=== PATIENT | female | born 1990 | race Caucasian/White ===

== ENCOUNTER 2018-07-16 20:29 | Emergency (ER) | payer MEDICAID, OTHER ==
--- NOTE | 2018-07-16 20:39 | ED Physician Documentation ---
PD HPI URI - Stated complaint Stated Complaint: SOA - Chief complaint Chief Complaint: General - History obtained from History obtained from: Patient - History of Present Illness Timing - onset: How many weeks ago (3-4) Timing duration: Weeks Timing details: Gradual onset, Waxing and waning Pain level now: 8 Associated symptoms: Fever, Chills, Sweats, Productive cough, Chest pain. No: Hemoptysis, Dyspnea, Bilateral edema, Unilateral edema Improves by: Rest Worsened by: Activity Similar symptoms before: Diagnosis (pneumonia) Recently seen: Clinic, Emergency Dept - Additional information Additional information: c/o 3-4 weeks of productive cough, pleuritic chest pain. Was seen in ED 3 weeks ago, had CXR. Per patient, was told cxr and blood tests were unremarkable. Despite this, she believed she had pneumonia and thus started taking amoxicillin which had been prescribed for her spouse for a sore throat. She then was seen in a walk-in clinic in [place] and had CXR, was told there was a LLL pneumonia and that it appeared improved compared to the CXR performed in ED (this came as a surprise to patient, as she says she was told the cxr was normal). She was told she had already taken enough amoxicillin and thus did not need any more antibiotics. She then returned to ED, as her symptoms persisted. She was prescribed MDI and steroids. She had flu swabs on two of these three visits and they were both negative. She presents to this ED at this time for ongoing cough, pleuritic chest pain, fever, chills/sweats. Review of Systems Constitutional: reports: Fever, Chills, Sweats Throat: reports: Sore throat Cardiac: reports: Chest pain / pressure. denies: Palpitations, Pedal edema, Calf pain Respiratory: reports: Cough. denies: Dyspnea, Hemoptysis, Wheezing GI: reports: Reviewed and negative PD PAST MEDICAL HISTORY - Past Medical History Past Medical History: Yes Respiratory: Pneumonia - Past Surgical History Past Surgical History: No - Present Medications Home Medications: Ambulatory Orders Medication Instructions Recorded Confirmed Azithromycin [Zithromax] 250 mg PO DAILY #4 tablet 07/16/18 predniSONE [Prednisone] 20 mg PO BID 3 Days #6 tablet 07/16/18 - Allergies Allergies/Adverse Reactions: Allergies Allergy/AdvReac Type Severity Reaction Status Date / Time No Known Drug Allergies Allergy Verified 07/16/18 20:37 - Living Situation Living Arrangement: reports: At home PD ED PE NORMAL - Vitals Vital signs reviewed: Yes - General General: Alert and oriented X 3, No acute distress, Well developed/nourished - Neck Neck: Supple, no meningeal sign - Cardiac Cardiac: RRR, No murmur - Respiratory Respiratory: No respiratory distress - Abdomen Abdomen: Soft, Non tender PD ED PE EXPANDED - Respiratory Respiratory: Rhonchi (course left base rhonchi). No: Wheezing, Rales, Decreased breath sounds Results - Vitals Vitals: Vital Signs - 24 hr 07/16/18 07/16/18 07/16/18 20:35 21:05 21:47 Temperature 38.5 C H 37.7 C H Heart Rate 113 H 116 H 106 H Respiratory 16 18 18 Rate Blood Pressure 118/73 115/70 113/69 O2 Saturation 97 96 97 Oxygen O2 Source Room air - Rads (name of study) chest xray Radiology: Prelim report reviewed, See rad report PD MEDICAL DECISION MAKING - ED course Complexity details: reviewed results, re-evaluated patient, considered differential, d/w patient Departure - Departure Disposition: Home, Self Care Clinical Impression: Pneumonia Condition: Good Instructions: ED Pneumonia Adult Prescriptions: Azithromycin [Zithromax] 250 mg PO DAILY #4 tablet predniSONE [Prednisone] 20 mg PO BID 3 Days #6 tablet
[2018-07-16] MEDS ORDERED: ACETAMINOPHEN 325 MG TABLET PO STA (20:56)
[2018-07-16] MEDS ORDERED: DEXAMETHASONE 10 MG/ML VIAL PO STA (20:56)
--- NOTE | 2018-07-16 21:25 | XRAY Report ---
Reason: cough, fever Procedure Date: 07/16/2018 Accession Number: [id number] / [id number] Procedure: XR - Chest 2 View X-Ray CPT Code: 69010 FULL RESULT: EXAM: CHEST RADIOGRAPHY EXAM DATE: 07/16/2018 09:02 PM. CLINICAL HISTORY: Cough, fever. COMPARISON: None. TECHNIQUE: 2 views. FINDINGS: Lungs/Pleura: There is a left lower lobe pneumonic infiltrate. The other lung zones are clear. There are no pleural effusions. Mediastinum: Heart and mediastinal contours are unremarkable. Other: None. IMPRESSION: Left lower lobe pneumonia. RADIA
[2018-07-16] MEDS ORDERED: AZITHROMYCIN 250 MG TABLET PO STA (21:49)
[2018-07-16] MEDS ORDERED: LIDOCAINE 1% 2 ML VIAL MC ONE (21:49)
[2018-07-16] MEDS ORDERED: cefTRIAXone 1 GM VIAL IM STA (21:49)
[2018-07-16 22:23] VITALS: BP 117/65
== END 2018-07-16 22:26 | disposition home or self-care (01) ==
LOC: ED 20:29
DX: J18.9 Pneumonia, unspecified organism (principal)
CPT/HCPCS: 71046; 96372; 99283; A9270

== ENCOUNTER 2018-11-12 18:20 | Emergency (ER) | payer MEDICAID ==
[2018-11-12] MEDS ORDERED: TETANUS/DIPHTHERIA/PERTUSSIS 0.5 ML SYRINGE IM ONE (18:35)
--- NOTE | 2018-11-12 18:39 | ED Physician Documentation ---
PD HPI LOWER EXT INJURY - Stated complaint Stated Complaint: R ANKLE INJ - Chief complaint Chief Complaint: Ext Problem - History obtained from History obtained from: Patient - History of Present Illness PD HPI LOW EXT INJURY LOCATION: Right (Trip and fall injuring the right ankle and skinning the left knee. Tetanus is unknown. She took ibuprofen prior to arrival and pain is moderate right now and declines further pain medication. No possibility of .) Review of Systems Constitutional: reports: Reviewed and negative Throat: reports: Reviewed and negative Cardiac: reports: Reviewed and negative Respiratory: reports: Reviewed and negative PD PAST MEDICAL HISTORY - Past Medical History Respiratory: Pneumonia - Past Surgical History Past Surgical History: No - Present Medications Home Medications: Ambulatory Orders Medication Instructions Recorded Confirmed RX: Azithromycin [Zithromax] 250 mg PO DAILY #4 tablet 07/16/18 predniSONE [Prednisone] 20 mg PO BID 3 Days #6 tablet 07/16/18 - Allergies Allergies/Adverse Reactions: Allergies Allergy/AdvReac Type Severity Reaction Status Date / Time No Known Drug Allergies Allergy Verified 11/12/18 18:25 - Social History Does the pt smoke?: Yes Smoking Status: Current every day smoker Does the pt drink ETOH?: Yes Does the pt have substance abuse?: No - Immunizations Immunizations are current?: Yes PD ED PE NORMAL - Vitals Vital signs reviewed: Yes - General General: Alert and oriented X 3, No acute distress - Neck Neck: No bony TTP - Extremities Extremities: Other (Tender and swollen over the right medial malleolus although she does have pain there. No foot or proximal fibular tenderness. She has an abrasion over the left patella without bony tenderness or limited range of motion.) - Neuro Neuro: Alert and oriented X 3, Normal speech Results - Vitals Vitals: Vital Signs - 24 hr 11/12/18 11/12/18 18:22 19:18 Temperature 37.0 C 36.7 C Heart Rate 86 75 Respiratory 19 18 Rate Blood Pressure 124/74 122/70 O2 Saturation 98 99 Oxygen O2 Source Room air - Rads (name of study) R ankle 3v Radiology: EMP read contemporaneously (STS no frx) Departure - Departure Disposition: 01 Home, Self Care Clinical Impression: Right ankle sprain, Abrasion, left knee, initial encounter Condition: Good Record reviewed to determine appropriate education?: Yes Instructions: ED Abrasion, ED Sprain Ankle W X Ray Comments: You may walk and bear weight as tolerated, Tylenol or ibuprofen as needed for pain. Follow-up with your doctor in a week if not better, return for new or worsening symptoms. Discharge Date/Time: 11/12/18 19:15
[2018-11-12 19:19] VITALS: BP 122/70
--- NOTE | 2018-11-12 19:24 | XRAY Report ---
Reason: ankle inj Procedure Date: 11/12/2018 Accession Number: [id number] / [id number] Procedure: XR - Ankle 3 View RT CPT Code: FULL RESULT: EXAM: RIGHT ANKLE RADIOGRAPHY EXAM DATE: 11/12/2018 06:57 PM. CLINICAL HISTORY: Ankle inj. COMPARISON: None. TECHNIQUE: 3 views. FINDINGS: Bones: Normal. No fractures or bone lesions. Joints: Small right ankle joint effusion. The ankle mortise is normally aligned. Soft Tissues: Marked right ankle soft tissue swelling noted. No radiopaque foreign bodies are noted. IMPRESSION: 1. No fracture or malalignment. 2. Ankle mortise intact. 3. Marked right ankle swelling. Small right ankle effusion. 4. If patient remains symptomatic, recommend radiographs in 10-14 days. RADIA
== END 2018-11-12 19:15 | disposition home or self-care (01) ==
LOC: ED 18:20
DX: S93.401A Sprain of unspecified ligament of right ankle, initial encounter (principal); S80.212A Abrasion, left knee, initial encounter; W01.0XXA Fall on same level from slipping, tripping and stumbling without subsequent striking against object, initial encounter; Y93.01 Activity, walking, marching and hiking; Z23 Encounter for immunization; F17.200 Nicotine dependence, unspecified, uncomplicated
CPT/HCPCS: 90471; 99282

== ENCOUNTER 2019-06-22 09:37 | Emergency (ER) | payer MEDICAID ==
--- NOTE | 2019-06-22 10:13 | ED Physician Documentation ---
PD HPI DYSPNEA - Stated complaint Stated Complaint: SOA/STOMACH PX - Chief complaint Chief Complaint: Resp - History obtained from History obtained from: Patient - History of Present Illness Timing - onset: How many weeks ago (2) Timing - duration: Weeks (2) Timing - details: Gradual onset, Still present Inciting event(s): URI (cough and congestion, with some purulent sputum, for 2 weeks. Having lower abd pain the past several days. Worse with cough and palpation and movement.), Exercise. No: Immobilization/travel Improved by: Rest Worsened by: Exertion, Coughing. No: Laying flat Associated symptoms: Cough, Wheezing, Chest pain / discomfort, Other (lower abd pain/suprapubic). No: Fever, Hemoptysis, Palpitations Recently seen: Surgery (had hysterectomy 9 weeks ago. Ovaries left in. Healed okay. She says she had a post-op infection vaginally and got abx for it. Has been feeling okay until this cough started.) Review of Systems Constitutional: denies: Fever, Chills, Myalgias Nose: reports: Congestion. denies: Rhinorrhea / runny nose Throat: denies: Sore throat Cardiac: denies: Chest pain / pressure, Palpitations Respiratory: reports: Dyspnea, Cough. denies: Wheezing GI: reports: Abdominal Pain, Nausea. denies: Vomiting, Diarrhea : denies: Dysuria, Frequency Musculoskeletal: denies: Extremity swelling PD PAST MEDICAL HISTORY - Past Medical History Respiratory: Pneumonia - Past Surgical History Past Surgical History: No - Present Medications Home Medications: Ambulatory Orders Medication Instructions Recorded Confirmed Albuterol Sulfate [Albuterol 2 puffs IH QID #1 hfa.aer.ad 06/22/19 Sulfate Hfa] Amoxicillin 500 mg PO TID #21 capsule 06/22/19 Benzonatate [Tessalon Perle] 100 mg PO TID PRN #20 capsule 06/22/19 Cetirizine [ZyrTEC] 10 mg PO DAILY #15 tablet 06/22/19 Hydrocodone/Acetaminophen [Tibbie 1 each PO Q6H PRN #15 tablet 06/22/19 5-325 Tablet] Naproxen 375 mg PO BID #20 tablet 06/22/19 - Allergies Allergies/Adverse Reactions: Allergies Allergy/AdvReac Type Severity Reaction Status Date / Time Iodinated Contrast Media Allergy Edema Verified 06/22/19 09:46 - Social History Does the pt smoke?: Yes Smoking Status: Current every day smoker Does the pt drink ETOH?: Yes Does the pt have substance abuse?: No - Immunizations Immunizations are current?: Yes PD ED PE NORMAL - Vitals Vital signs reviewed: Yes - General General: Alert and oriented X 3, No acute distress, Well developed/nourished - HEENT HEENT: Ears normal, Moist mucous membranes, Pharynx benign - Neck Neck: Supple, no meningeal sign, No adenopathy - Cardiac Cardiac: RRR, No murmur - Respiratory Respiratory: Clear bilaterally - Abdomen Abdomen: Normal bowel sounds, Soft, Non distended, No organomegaly, Other (healed laparoscopy incisions. Lower abd is tender in suprapubic area. No guarding nor percussion tenderness. ) - Female Female : Deferred - Rectal Rectal: Deferred - Back Back: No CVA TTP - Derm Derm: Normal color Results - Vitals Vitals: Vital Signs - 24 hr 06/22/19 06/22/19 09:46 12:55 Temperature 36.8 C 36.9 C Heart Rate 67 67 Respiratory 18 20 Rate Blood Pressure 116/71 105/74 O2 Saturation 100 100 Oxygen O2 Source Room air - Labs Labs: Laboratory Tests 06/22/19 06/22/19 06/22/19 10:45 12:00 12:00 WBC 6.6 RBC 4.19 L Hgb 11.4 L Hct 36.0 L MCV 85.9 MCH 27.2 MCHC 31.7 L RDW 13.3 Plt Count 211 MPV 11.6 H Neut # (Auto) 4.5 Lymph # (Auto) 1.4 L Bates # (Auto) 0.6 Eos # (Auto) 0.1 Baso # (Auto) 0.0 Absolute Nucleated RBC 0.00 Nucleated RBC % 0.0 D-Dimer 235.0 Sodium Potassium Chloride Carbon Dioxide Anion Gap BUN Creatinine Estimated GFR (MDRD) Glucose Calcium Magnesium Total Bilirubin AST ALT Alkaline Phosphatase B-Natriuretic Peptide Total Protein Albumin Globulin Albumin/Globulin Ratio Lipase Urine Color YELLOW Urine Clarity CLEAR Urine pH 6.0 Ur Specific [place] >=1.030 H Urine Protein NEGATIVE Urine Glucose (UA) NEGATIVE Urine Ketones NEGATIVE Urine Occult Blood NEGATIVE Urine Nitrite NEGATIVE Urine Bilirubin NEGATIVE Urine Urobilinogen 0.2 (NORMAL) Ur Leukocyte Esterase NEGATIVE Ur Microscopic Review NOT INDICATED Urine Culture Comments NOT INDICATED 06/22/19 06/22/19 12:00 12:00 WBC RBC Hgb Hct MCV MCH MCHC RDW Plt Count MPV Neut # (Auto) Lymph # (Auto) Bates # (Auto) Eos # (Auto) Baso # (Auto) Absolute Nucleated RBC Nucleated RBC % D-Dimer Sodium 136 Potassium 3.8 Chloride 104 Carbon Dioxide 26 Anion Gap 6.0 BUN 11 Creatinine 0.6 Estimated GFR (MDRD) 117 Glucose 97 Calcium 8.8 Magnesium 1.9 Total Bilirubin 0.8 AST 15 ALT 21 Alkaline Phosphatase 45 B-Natriuretic Peptide 7 Total Protein 6.8 Albumin 4.2 Globulin 2.6 Albumin/Globulin Ratio 1.6 Lipase 22 Urine Color Urine Clarity Urine pH Ur Specific [place] Urine Protein Urine Glucose (UA) Urine Ketones Urine Occult Blood Urine Nitrite Urine Bilirubin Urine Urobilinogen Ur Leukocyte Esterase Ur Microscopic Review Urine Culture Comments - Rads (name of study) chest xray Radiology: Prelim report reviewed (no acute process), See rad report pelvic U/S Radiology: Prelim report reviewed (small cysts on ovaries. No free fluid. No signs of abscess. ), See rad report PD MEDICAL DECISION MAKING - ED course Complexity details: considered differential (likely URI/bronchitis. No edema in legs nor CHF to consider. D-dimer negative so no DVT/PE. ), d/w patient Departure - Departure Disposition: 01 Home, Self Care Clinical Impression: Lower abdominal pain Upper respiratory infection Qualifiers: URI type: unspecified URI Qualified Code(s): J06.9 - Acute upper respiratory infection, unspecified Bronchitis, acute Qualifiers: Bronchitis organism: unspecified organism Qualified Code(s): J20.9 - Acute bronchitis, unspecified Dyspnea Qualifiers: Dyspnea type: dyspnea on exertion Qualified Code(s): R06.09 - Other forms of dyspnea Condition: Stable Record reviewed to determine appropriate education?: Yes Instructions: ED Upper Resp Infec Abx Tx Follow-Up: Javan Jones MD [Primary Care Provider] - Prescriptions: Albuterol Sulfate [Albuterol Sulfate Hfa] 2 puffs IH QID #1 hfa.aer.ad Amoxicillin 500 mg PO TID #21 capsule Benzonatate [Tessalon Perle] 100 mg PO TID PRN #20 capsule PRN Reason: Cough Cetirizine [ZyrTEC] 10 mg PO DAILY #15 tablet Hydrocodone/Acetaminophen [Tibbie 5-325 Tablet] 1 each PO Q6H PRN #15 tablet PRN Reason: Pain Naproxen 375 mg PO BID #20 tablet Comments: Stay well-hydrated. For the lower abdominal pain, your urine looks okay and the ultrasound did not show any obvious abnormalities. There are small cysts noted on the ovaries but none of them large nor leaking. For this pain, I am presuming possibly some pulling of adhesions or stretching of scar tissue with the cough and I will. Can use naproxen anti-inflammatories and add Tylenol or hydrocodone if needed for pains. For the cough and trouble breathing, use albuterol inhaler 2 puffs 4 times a day for the next week. Tessalon if needed for cough suppression. Cetirizine for possible allergies. Your chest x-ray and blood tests are normal so no signs of pneumonia, heart involvement, blood clots, fluid in the lungs or other more serious concerns. Discharge Date/Time: 06/22/19 13:34
[2019-06-22] MEDS ORDERED: KETOROLAC 15 MG/ML VIAL IVP STA (10:30)
[2019-06-22] MEDS ORDERED: SODIUM CHLORIDE 0.9% 1,000 ML IV ONE (10:30)
[2019-06-22] MEDS ORDERED: BENZONATATE 100 MG CAPSULE PO STA (10:31)
[2019-06-22 10:50] LABS: BILIRUBIN,URINE NEGATIVE (NEGATIVE); GLUCOSE, URINE (UA) NEGATIVE (NEGATIVE); KETONES,URINE (UA) NEGATIVE (NEGATIVE); LEUKOCYTE ESTERASE, URINE NEGATIVE (NEGATIVE); NITRITE,URINE NEGATIVE (NEGATIVE); OCCULT BLOOD,URINE NEGATIVE (NEGATIVE); PROTEIN,URINE NEGATIVE (NEGATIVE); UROBILINOGEN,URINE 0.2 (NORMAL) E.U./dL (NORMAL)
[2019-06-22 10:52] LABS: CLARITY,URINE CLEAR (CLEAR)
--- NOTE | 2019-06-22 11:07 | XRAY Report ---
Reason: dyspnea/ cough Procedure Date: 06/22/2019 Accession Number: [id number] / [id number] Procedure: XR - Chest 2 View X-Ray CPT Code: 18362 Final Report FULL RESULT: EXAM: CHEST RADIOGRAPHY 2 VIEWS EXAM DATE: 06/22/2019. CLINICAL HISTORY: Dyspnea. Cough. COMPARISON: PA and lateral chest on 07/16/2018. TECHNIQUE: PA and lateral views. FINDINGS: Lungs/Pleura: Normal vasculature. The lungs are clear. No pleural fluid or pneumothorax. Mediastinum: Normal cardiac and mediastinal contours. Bones: Normal. IMPRESSION: Normal 2-view chest radiography. RADIA
--- NOTE | 2019-06-22 11:53 | Ultrasound Report ---
Reason: pelvic pain; low abd pain; post hyst Procedure Date: 06/22/2019 Accession Number: [id number] / [id number] Procedure: US - Pelvic w/Transvag+Doppler Ltd CPT Code: Final Report FULL RESULT: EXAM: PELVIC ULTRASOUND WITH DOPPLERS CLINICAL HISTORY: Pelvic pain; low abdomen pain; post hysterectomy. COMPARISON: None. TECHNIQUE: Realtime transabdominal imaging performed to identify the uterus and adnexa and as an overview of other pelvic structures, followed by transvaginal imaging for better assessment of the endometrium and adnexa, with static image documentation. Color flow imaging and Doppler spectral analysis was performed to evaluate blood flow to the ovaries given pelvic pain and clinical concern for ovarian torsion. FINDINGS: Uterus: Not seen, surgically absent. Cervix: A few nabothian cysts are noticed, otherwise unremarkable. Right Ovary: 3.7 x 2.3 x 3.6 cm, volume 17 cc. Normal echotexture. Arterial and venous blood flow are present. PSV 14.3 cm/sec. RI 0.55. Adnexa are unremarkable. Left Ovary: 3.0 x 1.9 x 2.3 cm, volume 7.0 cc. Normal echotexture. Arterial and venous blood flow are present. PSV 11.8 cm/sec. RI 0.45. Adnexa are unremarkable. Free Fluid: None. Other: None. IMPRESSION: 1. Expected appearance post hysterectomy. 2. Arterial and venous blood flow are present to the ovaries bilaterally. RADIA
[2019-06-22 12:07] LABS: BASOPHILS % (AUTO) 0.5 %; EOSINOPHILS # (AUTO) 0.1 10^3/uL (0.0-0.7); EOSINOPHILS % (AUTO) 1.2 %; HGB - HEMOGLOBIN 11.4 g/dL (12.0-16.0); LYMPHOCYTES # (AUTO) 1.4 10^3/uL (1.5-3.5); LYMPHOCYTES % (AUTO) 21.4 %; MEAN CORPUSCULAR HEMOGLOBIN 27.2 pg (27.0-31.0); MEAN CORPUSCULAR HGB CONC 31.7 g/dL (32.0-36.0); MEAN CORPUSCULAR VOLUME 85.9 fL (81.0-99.0); MEAN PLATELET VOLUME 11.6 fL (7.9-10.8); MONOCYTES # (AUTO) 0.6 10^3/uL (0.0-1.0); MONOCYTES % (AUTO) 8.5 %; NEUTROPHILS # (AUTO) 4.5 10^3/uL (1.5-6.6); NEUTROPHILS % (AUTO) 67.9 %; PLT - PLATELET COUNT 211 10^3/uL (130-450); RED BLOOD COUNT 4.19 10^6/uL (4.20-5.40); RED CELL DISTRIBUTION WIDTH 13.3 % (12.0-15.0); WHITE BLOOD COUNT 6.6 x10^3/uL (4.8-10.8)
[2019-06-22 12:22] LABS: ALBUMIN 4.2 g/dL (3.2-5.5); ALBUMIN/GLOBULIN RATIO 1.6 (1.0-2.2); BILIRUBIN,TOTAL 0.8 mg/dL (0.2-1.0); CALCIUM 8.8 mg/dL (8.5-10.3); CREATININE 0.6 mg/dL (0.4-1.0); MAGNESIUM 1.9 mg/dL (1.7-2.8); TOTAL PROTEIN 6.8 g/dL (6.7-8.2)
[2019-06-22 12:56] VITALS: BP 105/74
[2019-06-22] MEDS ORDERED: AMOXICILLIN 250 MG CAPSULE PO STA (13:12)
[2019-06-22] MEDS ORDERED: DEXAMETHASONE 10 MG/ML VIAL PO STA (13:13)
[2019-06-22] MEDS ORDERED: CHERRY SYRUP 10 ML UDC PO ONE (13:13)
== END 2019-06-22 13:34 | disposition home or self-care (01) ==
LOC: ED 09:37
DX: R10.30 Lower abdominal pain, unspecified (principal); J06.9 Acute upper respiratory infection, unspecified; J20.9 Acute bronchitis, unspecified; F17.210 Nicotine dependence, cigarettes, uncomplicated
CPT/HCPCS: 36415; 71046; 76830; 76856; 80053; 81003; 83690; 83735; 83880; 85025; 85379; 93976; 99284; 99285; A9270; 81001; 87086

== ENCOUNTER 2019-07-06 17:39 | Outpatient (CLI) | payer MEDICAID | END 2019-07-06 17:40 | disposition home or self-care (01) | LOC: COV 17:39 | PROVIDERS: ATTEND Family Medicine | DX: R05 Cough (principal); R50.9 Fever, unspecified | CPT/HCPCS: 81599 ==

== ENCOUNTER 2020-04-03 17:35 | Emergency (ER) | payer MEDICAID ==
[2020-04-03 17:50] VITALS: BP 140/82
--- NOTE | 2020-04-03 18:20 | ED Physician Documentation ---
PD HPI UPPER EXT INJURY - Stated complaint Stated Complaint: RIGHT ARM PX - Chief complaint Chief Complaint: Ext Problem - History obtained from History obtained from: Patient - History of Present Illness Location: Right Type of injury: Fall Where injury occurred: Street Timing - onset: Last night (6PM) - Additonal information Additional information: Had EtOH last night and fell off hoverboard And on her right side. She remembers it. Complains of shoulder and elbow pain on that side. No other injuries. Review of Systems Constitutional: reports: Reviewed and negative Ears: reports: Reviewed and negative Nose: reports: Reviewed and negative Throat: reports: Reviewed and negative Cardiac: reports: Reviewed and negative PD PAST MEDICAL HISTORY - Past Medical History Past Medical History: Yes Respiratory: Pneumonia - Past Surgical History Past Surgical History: No /[employer]: Hysterectomy - Present Medications Home Medications: Ambulatory Orders Medication Instructions Recorded Confirmed Albuterol Sulfate [Albuterol 2 puffs IH QID #1 hfa.aer.ad 06/22/19 04/03/20 Sulfate Hfa] Cetirizine [ZyrTEC] 10 mg PO DAILY #15 tablet 06/22/19 04/03/20 Cyclobenzaprine [Flexeril] 10 mg PO TID PRN #10 tablet 04/03/20 - Allergies Allergies/Adverse Reactions: Allergies Allergy/AdvReac Type Severity Reaction Status Date / Time Iodinated Contrast Media Allergy Edema Verified 04/03/20 17:51 - Social History Does the pt smoke?: Yes Smoking Status: Current every day smoker Does the pt drink ETOH?: Yes Does the pt have substance abuse?: No - Immunizations Immunizations are current?: Yes PD ED PE NORMAL - Vitals Vital signs reviewed: Yes - General General: Alert and oriented X 3, No acute distress - Neck Neck: No bony TTP - Extremities Extremities: Other (Mild tenderness of both the shoulder and elbow on the right side with relatively full range of motion of both joints. No rib tenderness. No neck tenderness.) - Neuro Neuro: Alert and oriented X 3, Normal speech Results - Vitals Vitals: Vital Signs - 24 hr 04/03/20 17:47 Temperature 36.5 C Heart Rate 95 Respiratory 16 Rate Blood Pressure 140/82 H O2 Saturation 100 Oxygen O2 Source Room air PD MEDICAL DECISION MAKING - ED course ED course: 29-year-old woman with a fall off's hover board last night presents with pain of the shoulder and elbow. Clinically not fractured. X-rays of the right humerus and right elbow interpreted contemporaneously by me show no fracture. Advised to follow-up in 1 week if not better. Placed in a sling but advised to only use for 2 days. Departure - Departure Disposition: 01 Home, Self Care Clinical Impression: Shoulder contusion Qualifiers: Encounter type: initial encounter Laterality: right Qualified Code(s): S40.011A - Contusion of right shoulder, initial encounter Contusion of elbow, right Qualifiers: Encounter type: initial encounter Qualified Code(s): S50.01XA - Contusion of right elbow, initial encounter Condition: Good Record reviewed to determine appropriate education?: Yes Instructions: ED Contusion Soft Tissue Prescriptions: Cyclobenzaprine [Flexeril] 10 mg PO TID PRN #10 tablet PRN Reason: Spasms Comments: Do not wear the sling for more than 2 days as discussed. Return if worsening. Do not drink or drive while taking prescription muscle relaxer. You can also take Tylenol or ibuprofen as needed for the pain. Follow-up with your doctor in a week if not improved.
--- NOTE | 2020-04-03 19:04 | XRAY Report ---
PROCEDURE: Elbow 3 View RT INDICATIONS: ARM INJ TECHNIQUE: 3 views of the elbow were acquired. COMPARISON: None FINDINGS: Bones: No fractures or dislocations. No suspicious bony lesions. Soft tissues: No elbow joint effusion. No suspicious soft tissue calcifications. IMPRESSION: 1. No acute radiographic findings. If pain persists, consider repeat imaging in 5-7 days. Reviewed by: Zohra Fry MD on 04/03/2020 7:03 PM PST Approved by: Zohra Fry MD on 04/03/2020 7:03 PM PST Station ID: [id number]
--- NOTE | 2020-04-03 19:05 | XRAY Report ---
PROCEDURE: Humerus RT INDICATIONS: ARM INJ TECHNIQUE: 2 views of the humerus were acquired. COMPARISON: None FINDINGS: Bones: No fractures or dislocations. No suspicious bony lesions. Soft tissues: No suspicious soft tissue calcifications. IMPRESSION: 1. No acute radiographic findings. If pain persists, consider repeat imaging in 5-7 days. Reviewed by: Zohra Fry MD on 04/03/2020 7:04 PM PST Approved by: Zohra Fry MD on 04/03/2020 7:04 PM PST Station ID: [id number]
== END 2020-04-03 19:28 | disposition home or self-care (01) ==
LOC: ED 17:35
DX: S40.011A Contusion of right shoulder, initial encounter (principal); S50.01XA Contusion of right elbow, initial encounter; V00.181A Fall from other rolling-type pedestrian conveyance, initial encounter; Y93.89 Activity, other specified; F17.200 Nicotine dependence, unspecified, uncomplicated
CPT/HCPCS: 99283; 99284

== ENCOUNTER 2020-09-07 15:06 | Observation (INO) | payer MEDICAID ==
[2020-09-07] MEDS ORDERED: ONDANSETRON 4 MG/2 ML VIAL IVP STA (16:40)
[2020-09-07] MEDS ORDERED: SODIUM CHLORIDE 0.9% 1,000 ML IV STA (16:40)
--- NOTE | 2020-09-07 16:43 | ED Physician Documentation ---
History of Present Illness - Stated complaint Stated Complaint: VACCINE REACTION - Chief complaint Chief Complaint: Allergic Rx - Additonal information Additional information: 30-year-old female presents the emergency department for evaluation of headache, nausea, ringing in her left ear, vision changes after receiving the Pfizer COVID-19 vaccination 4 days ago. She reports that the symptoms started a few hours after she got the initial injection and have gone unabated despite ibuprofen and Tylenol. She has not had any abdominal pain, chest pain or shortness of air. No diarrhea. She does have past medical history of untreated hyperthyroidism. She is currently scheduled to see an real estate appraiser upcoming. Positive tobacco, rare EtOH no illicit drug use. She takes no prescribed medications. Past medical history includes hypothyroidism, fibromyalgia, arthritis. Review of Systems Constitutional: reports: Myalgias. denies: Fever Eyes: reports: Decreased vision Ears: denies: Loss of hearing (Ringing in left ear), Ear pain, Drainage/discharge Nose: reports: Reviewed and negative Cardiac: reports: Reviewed and negative Respiratory: denies: Dyspnea, Cough GI: reports: Reviewed and negative : denies: Dysuria, Frequency Skin: reports: Reviewed and negative Musculoskeletal: reports: Reviewed and negative Neurologic: reports: Headache. 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 - Present Medications Home Medications: Ambulatory Orders Medication Instructions Recorded Confirmed Albuterol Sulfate [Albuterol 2 puffs IH QID #1 hfa.aer.ad 06/22/19 04/03/20 Sulfate Hfa] Cetirizine [ZyrTEC] 10 mg PO DAILY #15 tablet 06/22/19 04/03/20 Cyclobenzaprine [Flexeril] 10 mg PO TID PRN #10 tablet 04/03/20 - Allergies Allergies/Adverse Reactions: Allergies Allergy/AdvReac Type Severity Reaction Status Date / Time Iodinated Contrast Media Allergy Edema Verified 09/07/20 15:11 - Social History Does the pt smoke?: Yes Smoking Status: Current every day smoker Does the pt drink ETOH?: Yes Does the pt have substance abuse?: No - Immunizations Immunizations are current?: Yes PD ED PE EXPANDED - General General: Alert, No acute distress - HEENT HEENT: Atraumatic, PERRL, Other (Enlarged thyroid without goiter or nodules palpated.) - Neck Neck: Supple w/out meningeal sx. No: Adenopathy - Cardiac Cardiac: Regular Rate, Radial strong equal, Pedal strong equal, Cap refill < 2 sec. No: Murmur Present - Respiratory Respiratory: Clear to ausultation ana. No: Distress, Labored - Abdomen Abdomen: Normal Bowel sounds. No: Tender to palpation - Derm Derm: Normal color, Warm and dry - Extremities Extremities: Normal. No: Deformity, Tenderness - Neuro Neuro: Alert and Oriented X 3, CNII-XII intact, CN deficit (Loss of hearing in left ear. Positive tinnitus.), PERRL, Cerebellar nl, Normal gait, Normal finger nose, Normal speech. No: Nystagmus - GCS Eye Opening: Spontaneous Motor: Obeys Commands Verbal: Oriented Total: 15 Results - Vitals Vitals: Vital Signs - 24 hr 09/07/20 15:11 Temperature 36.6 C Heart Rate 75 Respiratory 16 Rate Blood Pressure 127/78 O2 Saturation 100 Oxygen O2 Source Room air - Labs Labs: Laboratory Tests 09/07/20 09/07/20 09/07/20 16:41 16:41 16:41 WBC 8.3 RBC 4.57 Hgb 14.2 Hct 42.0 MCV 91.9 MCH 31.1 H MCHC 33.8 RDW 12.6 Plt Count 264 MPV 11.3 H Neut # (Auto) 5.9 Lymph # (Auto) 1.7 [place] # (Auto) 0.5 Eos # (Auto) 0.1 Baso # (Auto) 0.1 Absolute Nucleated RBC 0.00 Nucleated RBC % 0.0 Sodium 137 Potassium 3.8 Chloride 100 L Carbon Dioxide 27 Anion Gap 10.0 BUN 8 Creatinine 0.6 Estimated GFR (MDRD) 117 Glucose 92 Calcium 9.3 Total Bilirubin 0.7 AST 21 ALT 23 Alkaline Phosphatase 50 Total Protein 7.8 Albumin 5.0 Globulin 2.8 Albumin/Globulin Ratio 1.8 Lipase 23 TSH 0.32 L Thyroxine (T4) 7.43 Urine Color Urine Clarity Urine pH Ur Specific [place] Urine Protein Urine Glucose (UA) Urine Ketones Urine Occult Blood Urine Nitrite Urine Bilirubin Urine Urobilinogen Ur Leukocyte Esterase Ur Microscopic Review Urine Culture Comments 09/07/20 16:50 WBC RBC Hgb Hct MCV MCH MCHC RDW Plt Count MPV Neut # (Auto) Lymph # (Auto) [place] # (Auto) Eos # (Auto) Baso # (Auto) Absolute Nucleated RBC Nucleated RBC % Sodium Potassium Chloride Carbon Dioxide Anion Gap BUN Creatinine Estimated GFR (MDRD) Glucose Calcium Total Bilirubin AST ALT Alkaline Phosphatase Total Protein Albumin Globulin Albumin/Globulin Ratio Lipase TSH Thyroxine (T4) Urine Color YELLOW Urine Clarity CLEAR Urine pH 7.5 Ur Specific [place] 1.020 Urine Protein NEGATIVE Urine Glucose (UA) NEGATIVE Urine Ketones TRACE Urine Occult Blood NEGATIVE Urine Nitrite NEGATIVE Urine Bilirubin NEGATIVE Urine Urobilinogen 0.2 (NORMAL) Ur Leukocyte Esterase NEGATIVE Ur Microscopic Review NOT INDICATED Urine Culture Comments NOT INDICATED - Rads (name of study) CT head Radiology: Final report received ( Low-density lesion in the left frontal periventricular white matter. Finding is nonspecific imaging characteristics may represent a subacute infarct, neoplastic disease infection or demyelinating process. Recommend MRI of the brain with and without contrast.) PD MEDICAL DECISION MAKING - ED course Complexity details: reviewed results, re-evaluated patient, considered differential ED course: 30-year-old female presents the emergency department for evaluation of acute onset headache, nausea blurry vision and now tinnitus with loss of hearing in the left ear. This began 4 days ago after her COVID-19 vaccination. Here in the emergency department screening labs are essentially unremarkable. She has a normal neuro exam as well as a cerebellar exam. However the acute headache with associated tinnitus was concerning and a head CT was completed. Unfortunately does show a low-density lesion within the left frontal periventricular white matter. The differential in discussion with the radiologist does include subacute infarct versus tumor mass. He does recommend MRI with and without contrast on an emergent basis ( he would recommend within the next 24 hours given concern for subacute infarct) Reassuringly on presentation the patient does not have any focal neuro deficits. Her NIHSS is 0. I discussed this case with the hospitalist Dr. Hope and she agrees to bring the patient in for further evaluation and treatment of this lesion which may include infarct versus mass. Departure - Departure Disposition: ED Place in Observation Clinical Impression: Left frontal lobe lesion Tinnitus Qualifiers: Laterality: left Qualified Code(s): H93.12 - Tinnitus, left ear Headache Qualifiers: Headache type: unspecified Headache chronicity pattern: acute headache Intractability: not intractable Qualified Code(s): R51.9 - Headache, unspecified Discharge Date/Time: 09/07/20 18:15
[2020-09-07 16:47] LABS: BASOPHILS # (AUTO) 0.1 10^3/uL (0.0-0.1); BASOPHILS % (AUTO) 0.6 %; EOSINOPHILS # (AUTO) 0.1 10^3/uL (0.0-0.7); HGB - HEMOGLOBIN 14.2 g/dL (12.0-16.0); LYMPHOCYTES # (AUTO) 1.7 10^3/uL (1.5-3.5); LYMPHOCYTES % (AUTO) 20.5 %; MEAN CORPUSCULAR HEMOGLOBIN 31.1 pg (27.0-31.0); MEAN CORPUSCULAR HGB CONC 33.8 g/dL (32.0-36.0); MEAN CORPUSCULAR VOLUME 91.9 fL (81.0-99.0); MEAN PLATELET VOLUME 11.3 fL (7.9-10.8); MONOCYTES # (AUTO) 0.5 10^3/uL (0.0-1.0); MONOCYTES % (AUTO) 6.2 %; NEUTROPHILS # (AUTO) 5.9 10^3/uL (1.5-6.6); NEUTROPHILS % (AUTO) 71.2 %; PLT - PLATELET COUNT 264 10^3/uL (130-450); RED BLOOD COUNT 4.57 10^6/uL (4.20-5.40); RED CELL DISTRIBUTION WIDTH 12.6 % (12.0-15.0); WHITE BLOOD COUNT 8.3 x10^3/uL (4.8-10.8)
[2020-09-07 17:02] LABS: ALBUMIN/GLOBULIN RATIO 1.8 (1.0-2.2); BILIRUBIN,TOTAL 0.7 mg/dL (0.2-1.0); CALCIUM 9.3 mg/dL (8.5-10.3); CREATININE 0.6 mg/dL (0.4-1.0); POTASSIUM 3.8 mmol/L (3.5-5.0); TOTAL PROTEIN 7.8 g/dL (6.7-8.2)
--- NOTE | 2020-09-07 17:05 | CT Report ---
PROCEDURE: HEAD WO INDICATIONS: headache; ringing in ears TECHNIQUE: Noncontrast 4.5 mm thick angled axial sections acquired from the foramen magnum to the vertex. For r adiation dose reduction, the following was used: automated exposure control, adjustment of mA and/or kV according to patient size. COMPARISON: None. FINDINGS: Image quality: Excellent. CSF spaces: Basal cisterns are patent. No extra-axial fluid collections. Ventricles are normal in size and shape. Brain: Small low-density lesion noted in the left frontal periventricular white matter. No midline s hift. No intracranial masses or hemorrhage. Reyez-white matter interface is normal. Skull and face: Calvarium and visualized facial bones are intact, without suspicious lesions. Sinuses: Visualized sinuses and mastoids are clear. IMPRESSION: Low-density lesion in the left frontal periventricular white matter. Finding is nonspecific imaging c haracteristics may represent subacute infarct, neoplastic process, infection or demyelinating process . Recommend MRI of the brain with and without contrast for additional evaluation. Findings and recommendations discussed with Dr. Del Valle on 09/07/2020 at 1701 hours. Reviewed by: Ruth Garcia MD, PhD on 09/07/2020 5:04 PM PDT Approved by: Ruth Garcia MD, PhD on 09/07/2020 5:04 PM PDT Station ID: [id number]
[2020-09-07 17:13] LABS: BILIRUBIN,URINE NEGATIVE (NEGATIVE); GLUCOSE, URINE (UA) NEGATIVE (NEGATIVE); KETONES,URINE (UA) TRACE mg/dL (NEGATIVE); LEUKOCYTE ESTERASE, URINE NEGATIVE (NEGATIVE); NITRITE,URINE NEGATIVE (NEGATIVE); OCCULT BLOOD,URINE NEGATIVE (NEGATIVE); PH,URINE 7.5 PH (5.0-7.5); PROTEIN,URINE NEGATIVE (NEGATIVE); UROBILINOGEN,URINE 0.2 (NORMAL) E.U./dL (NORMAL)
[2020-09-07 17:15] LABS: T4 (THYROXINE) 7.43 ug/dL (6.09-12.23)
[2020-09-07 17:16] LABS: CLARITY,URINE CLEAR (CLEAR)
[2020-09-07 17:19] LABS: THYROID STIMULATING HORMONE 0.32 uIU/mL (0.34-5.60)
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
[2020-09-07] MEDS ORDERED: SODIUM CHLORIDE FLUSH 0.9% 10 ML SYRINGE IVP PRN (17:24)
[2020-09-07] MEDS ORDERED: ACETAMINOPHEN 325 MG TABLET PO PRN (17:24)
[2020-09-07] MEDS ORDERED: ONDANSETRON ODT 4 MG TABLET TL PRN (17:24)
[2020-09-07] MEDS ORDERED: PROCHLORPERAZINE 10 MG/2 ML VIAL IVP PRN (17:24)
[2020-09-07] MEDS ORDERED: LORazepam 1 MG TABLET PO STA (17:33)
[2020-09-07] MEDS: oxyCODONE 5 MG TABLET PO PRN ×2 (17:40→22:05)
--- OUTSIDE RECORDS SUMMARY | 2020-09-07 18:04 | EXTERNAL MEDICAL SUMMARY RPT | Continuity of Care Document ---
:1990 Demographics Phone Unavailable Preferred Language Unknown Marital Status Unknown Roman Catholic Affiliation Unknown Race Unknown Ethnic Group Unknown Author Organization [facility] Address [address] [place] [address] Phone Allergies Encounters Medications Problems Results
[2020-09-08] MEDS: oxyCODONE 5 MG TABLET PO PRN (06:30)
[2020-09-08] MEDS: IBUPROFEN 400 MG TABLET PO PRN ×2 (06:30→11:59)
[2020-09-08] MEDS: SODIUM CHLORIDE FLUSH 0.9% 10 ML SYRINGE IVP SCH ×2 (06:49→09:00)
[2020-09-08] MEDS ORDERED: DEXAMETHASONE 4 MG/ML VIAL IVP ONE (10:40)
[2020-09-08] MEDS ORDERED: IOVERSOL 320 100 ML VIAL IVP ONE ×2 (11:50→12:32)
--- NOTE | 2020-09-08 12:15 | CT Report ---
PROCEDURE: ANGIO HEAD W/WO INDICATIONS: abnormal mass CT, MRI not avail CONTRAST: IV CONTRAST: Optiray 320 ml: 80 PO CONTRAST: *NO PO CONTRAST TECHNIQUE: Precontrast 4.5 mm thick angled axial sections acquired from the foramen magnum to the vertex. Afte r the administration of intravenous contrast, 1 mm thick sections acquired through the [place] of [place] is. Postcontrast 4.5 mm thick sections then re-acquired from the foramen magnum to the vertex. 3-di mensional beqikgg-ohgnahwcy-yctmsyzpar (MIP) and/or volume rendering reformats were acquired of the c entral intracranial vasculature. For radiation dose reduction, the following was used: automated ex posure control, adjustment of mA and/or kV according to patient size. COMPARISON: Noncontrast head CT, 09/07/2020 FINDINGS: Image quality: Excellent. Anterior circulation: Intracranial internal carotid arteries are normal in size and flow. The flow within the paired anterior cerebral arteries is normal and symmetric. The flow within the middle cer ebral arteries is normal and symmetric. The anterior communicating artery is seen. No aneurysms are seen. Posterior circulation: Visualized portions of the vertebral arteries demonstrate normal caliber, and join to form a normal appearing basilar artery. Flow within the posterior cerebral arteries is norm al and symmetric. No aneurysms are seen. CSF spaces: Ventricles are normal in size and shape. Basal cisterns are patent. No extra-axial flu id collections. Brain: There is again seen focal low-density adjacent to the anterior aspect of the frontal horn of the left lateral ventricle, best seen on series 15 image 12. This measures 11 mm and does not enhance . No midline shift. No intracranial bleeds. Reyez-white matter interface appears intact. Skull and face: Calvarium and facial bones appear intact, without suspicious lesions. Sinuses: Visualized sinuses and mastoids are clear. IMPRESSION: 11 mm nonenhancing low density focus seen within the deep white matter adjacent to the anterior aspec t of the frontal horn of the left ventricle. This is most likely related to a remote infarct. When clinically appropriate, please consider follow-up MRI (without and with contrast) Reviewed by: Guero Wood MD on 09/08/2020 11:13 AM [place] Approved by: Guero Wood MD on 09/08/2020 11:13 AM [place]ORRIE Station ID: [id number]
--- NOTE | 2020-09-08 12:32 | PHARMACY PROGRESS NOTE ---
- Best Possible Medication History Admit Date and Time: 09/07/20 1724 Processed by: Pharmacy Medication History completed: Yes Patient Interview: Completed (PATIENT INTERVIEWED BY PHARMACY. PATIENT REPORTS SHE ONLY USES ALBUTEROL) As the person ultimately responsible for medication therapy, providers are able to order a medication from an existing home medication list in [facility] via the "Reconcile Routine" prior to Confirmation of that medication by desktop support consultant. Such practice is discouraged except when the physician, in their clinical judgment, deems that a medical need exists for a medication without regard to previous use.
--- NOTE | 2020-09-08 12:57 | Discharge Plan ---
Discharge Plan Problem Reviewed?: Yes Disposition: 01 Home, Self Care Condition: Good Diet: Regular Activity Restrictions: Activity as Tolerated Shower Restrictions: No Driving Restrictions: No Health Concerns: You presented to our emergency room with a new onset of headache, nausea, blurred vision that started within hours of getting the Pfizer vaccine, shot #1. It did not go away even after taking Tylenol and Motrin at home so you presented to the emergency room. The emergency room evaluation was done with a CT of the head and the CT of the head showed a lesion in the left front part of your brain that is underneath your left front forehead. It coincided with where you were having headaches. We placed you in observation to do an MRI but MRI is unavailable today unexpectedly. As such I spoke to radiology and he felt that an angiogram of your brain would help us understand if this was an emergent problem or problem that could be handled in the outpatient setting. The radiologist performed a CT angiogram and it shows you have a surprising finding of a stroke. It is old enough that it is formed its own scar tissue area but we are not able to detect the age of when this happened. Plan of Treatment: At this time we just need you to follow-up with your primary care provider to follow-up for continuity of care. Care Goals: To be headache free. We recommend Tylenol and Motrin as you have been using them. Assessment: Patient understands care goals. Her [id number] was at the bedside for this discussion. Patient gave me permission to discuss this in front of her [id number]. No Smoking: If you smoke, Please STOP! Call for help. Follow-up with: Javan Jones MD [Primary Care Provider] -
--- NOTE | 2020-09-08 13:00 | DISCHARGE SUMMARY ---
"Discharge Summary Admit Date: 09/07/20 Discharge Date: 09/08/20 Discharging Provider: Vanessa Hope MD Primary Care Provider: Javan Jones MD Code Status: Attempt Resuscitation Condition at Discharge: Good Discharge Disposition: 01 Home, Self Care - DIAGNOSES Discharge Diagnoses with Status of Each Condition: 1. Abnormal CT scan of the head 2. Remote stroke 3. Neurological symptoms 4. Tobacco use - HPI History of Present Illness: 30-year-old white female whose past medical history is that of hypothyroidism, pneumonia, polycystic ovarian disease with fibromyalgia that presents with what she thought was an allergic reaction to her Pfizer vaccine 4 days ago. She started having symptoms hours after her dose and the symptoms of gotten worse. The symptoms consist of headache, vision changes, tinnitus. But all of it is centered over the left frontal skull area. She has been taking Tylenol and ibuprofen and is not getting any better. There is no loss of vision, focal neurological deficits or paresthesias, nuchal pain, nausea, vomiting, abdominal pain. She was seen in the emergency room by nurse jostin Del Valle where her temperature was 36.6. Pulse 75. Blood pressure 127/78. Respirations 16 and 100% on room air. Her neurological exam is completely normal. CT of the head was done and showed her to have a low-density lesion in the left frontal periventricular white matter. It is a nonspecific characteristic and may prove to be either subacute infarct, neoplastic process, infection or demyelinating process. An MRI is recommended. When the findings and recommendations were discussed with nurse jostin Del Valle by the radiologist, he feels that the patient should have an MRI within the next 24 hours. As such the patient is being placed in observation to obtain an MRI. 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 Head CT. Low-density lesion in the left frontal periventricular white matter. Nonspecific imaging characteristics. Recommend MRI of the brain with a nd without contrast. 2. Head CT angiogram. Focal low density adjacent to the anterior aspect of the frontal horn of the left lateral ventricle. Nonenhancing. Most likely related to a remote infarct. Please consider follow-up MRI with and without gadolinium. - HOSPITAL COURSE Hospital Course: The patient was placed in observation to get the MRI. Unfortunately MRI was unavailable. We did not know this until the morning of the patient's admission. As such I discussed the case with radiology who felt that we can ascertain the urgency of this work-up by doing a CT angiogram. If the CT angiogram showed disease that was possibly life-threatening, we will transfer the patient. CT of the head showed a surprising finding of an old remote stroke. As such the patient can be discharged home to have outpatient work-up to why someone her young age would have had an old stroke. Radiology is still recommending a possible MRI of the head with and without gadolinium. At discharge her [id number] was at the bedside and her discharge instructions. Patient gave me permission to discuss her case in front of her [id number]. Temperature is 37 1. Heart rate 69. Blood pressure 103/56. Respirations 16. 97% on room air. She continues to have a low-grade dull headache over the left fronto parietal skull region. Pupils are reactive. Extraocular movements intact. Speech is normal. Lungs are clear. Regular rate and rhythm without murmur. A benign abdomen. Neurologically there are no focal neurological deficits, she is speaking clearly and lucidly, able to get up and ambulate in her room. Eating and swallowing normally. I have asked her to stop smoking. Please follow-up with her primary care provider in follow-up. - ALLERGIES Allergies/Adverse Reactions: Allergies Allergy/AdvReac Type Severity Reaction Status Date / Time Iodinated Contrast Media Allergy Edema Verified 09/07/20 15:11 - MEDICATIONS Home Medications: Ambulatory Orders Medication Instructions Recorded Confirmed Acetaminophen [Tylenol] 650 mg PO Q4HR PRN tablet 09/08/20 Albuterol Sulfate [Albuterol 2 puffs IH QID PRN 09/08/20 09/08/20 Sulfate Hfa] Ibuprofen [Motrin] 400 mg PO Q4HR PRN tablet 09/08/20 - LABS Result Diagrams: 09/07/20 16:41 09/07/20 16:41"
[2020-09-08 13:49] VITALS: BP 116/62
== END 2020-09-08 14:00 | disposition home or self-care (01) ==
LOC: ED 15:06 → MS2 17:24
PROVIDERS: ADMIT Specialist; ATTEND Specialist
DX: G93.9 Disorder of brain, unspecified (principal); J45.909 Unspecified asthma, uncomplicated; E03.9 Hypothyroidism, unspecified; F17.210 Nicotine dependence, cigarettes, uncomplicated; R51.9 Headache, unspecified; H93.12 Tinnitus, left ear; M54.6 Pain in thoracic spine; F41.9 Anxiety disorder, unspecified; F32.9 Major depressive disorder, single episode, unspecified; M79.7 Fibromyalgia; H53.8 Other visual disturbances; J98.4 Other disorders of lung; Z86.73 Personal history of transient ischemic attack (TIA), and cerebral infarction without residual deficits
CPT/HCPCS: 36415; 70450; 70496; 80053; 81003; 83690; 84436; 84443; 85025; 96374; 96375; 99284; 99285; A9270; G0378; J8499; Q9967; 81001; 87086

== ENCOUNTER 2020-09-23 08:46 | Outpatient (CLI) | payer MEDICAID ==
--- NOTE | 2020-09-23 19:04 | Ultrasound Report ---
PROCEDURE: Head or Neck Soft Tissue INDICATIONS: THYROTOXICOSIS TECHNIQUE: Real-time scanning was performed of the thyroid gland, with image documentation. COMPARISON: None FINDINGS: Right: Thyroid lobe measures Size cm. Left: Thyroid lobe measures Size cm. Isthmus: Size mm thick. US thyroid nodules are seen, the largest 6 are described below: Nodule number: 1 Location: Right mid thyroid posteriorly Size: 2.4 x 1.7 x 2 cm. Composition: Predominantly solid Echogenicity: Hypoechoic Shape: wider than tall. Margins: Smooth Echogenic foci: None Total points: 4 ACR TI-RADS category: 4 Nodule number: 2 Location: Right inferior thyroid medially and posteriorly Size: 1.6 x 1.4 x 1.3 cm. Composition: Spongiform Echogenicity: Hypoechoic Shape: wider than tall. Margins: Smooth Echogenic foci: None Total points: 2 ACR TI-RADS category: 2 Nodule number: 3 Location: Right anterior thyroid inferiorly Size: 1 x 0.6 x 1.1 cm. Composition: Solid Echogenicity: Hypoechoic Shape: wider than tall. Margins: Smooth Echogenic foci: Punctate Total points: 7 ACR TI-RADS category: 5 Nodule number: 4 Location: Left superior thyroid Size: 2.2 x 1.3 x 1.4 cm. Composition: Spongiform Echogenicity: Hypoechoic Shape: wider than tall. Margins: Smooth Echogenic foci: None Total points: 2 ACR TI-RADS category: 2 Nodule number: 5 Location: Left superior lateral thyroid Size: 0.8 x 0.5 x 0.7 cm. Composition: Solid Echogenicity: Hypoechoic Shape: wider than tall. Margins: Smooth Echogenic foci: Punctate Total points: 7 ACR TI-RADS category: 5 Nodule number: 6 Location: Left inferior thyroid Size: 2.1 x 1.8 x 1.7 cm. Composition: Predominantly solid Echogenicity: Hypoechoic Shape: Wider than tall Margins: Smooth Echogenic foci: None Total points: 4 ACR TI-RADS category: 4 IMPRESSION: Numerous thyroid nodules are seen. By published criteria, 3 these nodules demonstrate findings that would recommend fine-needle aspirati on (nodules numbers 1, 3, and 6 above). 4 nodule #5 above, annual follow-up is recommended. ACR TI-RADS definitions and recommendations: TI-RADS 1 (benign): 0 points. FNA not needed. TI-RADS 2 (not suspicious): 2 points. FNA not needed. TI-RADS 3 (mildly suspicious): 3 points. ? FNA if 2.5 cm or larger, follow up if 1.5 cm or larger (at 1, 3, and 5 years). TI-RADS 4 (moderately suspicious): 4-6 points. ? FNA if 1.5 cm or larger, follow up if 1 cm or larger (at 1, 2, 3, and 5 years). TI-RADS 5 (highly suspicious): 7 points or more. ? FNA if 1 cm or larger, follow up if 0.5 cm or larger (every year for 5 years). Reviewed by: Guero Wood MD on 09/23/2020 6:03 PM [facility] Approved by: Guero Wood MD on 09/23/2020 6:03 PM [facility] Station ID: [id number]
== END 2020-09-23 08:47 | disposition home or self-care (01) ==
LOC: DI 08:46
PROVIDERS: ATTEND Internal Medicine
DX: E04.2 Nontoxic multinodular goiter (principal)

== ENCOUNTER 2021-01-26 09:05 | Emergency (ER) | payer MEDICAID ==
--- NOTE | 2021-01-26 09:42 | XRAY Report ---
PROCEDURE: Chest 2 View X-Ray INDICATIONS: chest pain TECHNIQUE: 2 view(s) of the chest. COMPARISON: None. FINDINGS: SUPPORT DEVICES: None. LUNG/PLEURA: No focal consolidation or pulmonary edema. No pleural effusion or space-occupying pneumo thorax. MEDIASTINUM: The cardiomediastinal silhouette is within normal limits. BONES/SOFT TISSUES: No acute abnormality. IMPRESSION: 1.No acute cardiopulmonary abnormality. Reviewed by: Dawson Cooney MD on 01/26/2021 9:41 AM PDT Approved by: Dawson Cooney MD on 01/26/2021 9:41 AM PDT Station ID: [id number]
--- NOTE | 2021-01-26 09:53 | ED Physician Documentation ---
History of Present Illness - Stated complaint Stated Complaint: CHEST PX,FEVER,ABD PX,BACK PX - Chief complaint Chief Complaint: General - History obtained from History obtained from: Patient - Additonal information Additional information: 30-year-old female had coronavirus becoming symptomatic January 09. She had had a single Covid vaccine a few months ago, she was admitted here briefly and felt to have potentially a small stroke which may or may not have been related to the vaccine reaction. As such she never had the second vaccine. She presents with persistent shortness of breath since the onset of Covid which has now been 2 and half weeks, no cough but fevers starting the last couple of days. Finished up a Z-Obi for potential pneumonia about 5 days ago. She has diffuse chest pain with this. Denies pedal edema or calf pain. Review of Systems Ten Systems: 10 systems reviewed and negative Constitutional: reports: Fever, Chills. 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: Hysterectomy - Present Medications Home Medications: Ambulatory Orders Medication Instructions Recorded Confirmed Albuterol Sulf [Ventolin Hfa 1 - 2 puffs INH Q4HR PRN #1 inhaler 01/26/21 Inhaler] - Allergies Allergies/Adverse Reactions: Allergies Allergy/AdvReac Type Severity Reaction Status Date / Time Iodinated Contrast Media Allergy Edema Verified 01/26/21 09:19 - Social History Does the pt smoke?: Yes Smoking Status: Current every day smoker Does the pt drink ETOH?: Yes Does the pt have substance abuse?: No - Immunizations Immunizations are current?: Yes - POLST Patient has POLST: No POLST Status: Full Code PD ED PE NORMAL - Vitals Vital signs reviewed: Yes - General General: Alert and oriented X 3, No acute distress - HEENT HEENT: PERRL, EOMI - Neck Neck: Supple, no meningeal sign, No bony TTP - Cardiac Cardiac: RRR, No murmur - Respiratory Respiratory: No respiratory distress, Clear bilaterally - Abdomen Abdomen: Non tender - Back Back: No CVA TTP, No spinal TTP - Derm Derm: Normal color, Warm and dry - Extremities Extremities: No edema, No calf tenderness / cord - Neuro Neuro: Alert and oriented X 3, Normal speech Results - Vitals Vitals: Vital Signs - 24 hr 01/26/21 01/26/21 01/26/21 09:15 09:24 10:30 Temperature 37.5 C 36.5 C Heart Rate 92 98 83 Respiratory 16 34 H 22 Rate Blood Pressure 138/79 H 138/79 H O2 Saturation 100 100 01/26/21 12:07 Temperature 36.5 C Heart Rate 90 Respiratory 19 Rate Blood Pressure 136/64 H O2 Saturation 99 Oxygen O2 Source Room air - EKG (time done) 0910 Rate: Rate (enter#) (93) Rhythm: NSR [place]: Normal Intervals: Normal MS QRS: Normal Ischemia: Normal ST segments - Labs Labs: Laboratory Tests 01/26/21 01/26/21 09:49 09:49 WBC 7.3 RBC 4.47 Hgb 13.6 Hct 40.3 MCV 90.2 MCH 30.4 MCHC 33.7 RDW 12.3 Plt Count 234 MPV 11.4 H Neut # (Auto) 5.1 Lymph # (Auto) 1.5 [place] # (Auto) 0.6 Eos # (Auto) 0.1 Baso # (Auto) 0.0 Absolute Nucleated RBC 0.00 Nucleated RBC % 0.0 Sodium 138 Potassium 4.0 Chloride 103 Carbon Dioxide 25 Anion Gap 10.0 BUN 13 Creatinine 0.6 Estimated GFR (MDRD) 117 Glucose 109 H Calcium 9.5 - Rads (name of study) 2v chest XR Radiology: EMP read contemporaneously (NAD) CTA chest Radiology: EMP read contemporaneously PD MEDICAL DECISION MAKING - ED course ED course: 30-year-old woman with persistent shortness of breath and now recurrent fevers after having Covid about 2 and half weeks ago. Could be long-haul Covid or superimposed pneumonia or simply persistent symptoms, that said PE is also a possibility and we will do a CT for same pretreating because of prior contrast reaction. Note made of listed allergy to iodine contrast but did fine with pretreatment with Decadron and Benadryl. CT showing continued basilar groundglass opacities so presume her shortness of breath is simply from the Covid still. No evidence of PE or pneumonia. Departure - Departure Disposition: 01 Home, Self Care Clinical Impression: Dyspnea due to COVID-19 Condition: Good Record reviewed to determine appropriate education?: Yes Instructions: ED Dyspnea Shortness of Breath Prescriptions: Albuterol Sulf [Ventolin Hfa Inhaler] 1 - 2 puffs INH Q4HR PRN #1 inhaler PRN Reason: Shortness Of Air/Wheezing Comments: Followup with your physician and discuss thyroid nodule needing followup ultraso und. Return if worse. Discharge Date/Time: 01/26/21 12:15
[2021-01-26 09:54] LABS: BASOPHILS % (AUTO) 0.6 %; EOSINOPHILS # (AUTO) 0.1 10^3/uL (0.0-0.7); EOSINOPHILS % (AUTO) 1.4 %; HCT - HEMATOCRIT 40.3 % (37.0-47.0); HGB - HEMOGLOBIN 13.6 g/dL (12.0-16.0); LYMPHOCYTES # (AUTO) 1.5 10^3/uL (1.5-3.5); MEAN CORPUSCULAR HEMOGLOBIN 30.4 pg (27.0-31.0); MEAN CORPUSCULAR HGB CONC 33.7 g/dL (32.0-36.0); MEAN CORPUSCULAR VOLUME 90.2 fL (81.0-99.0); MEAN PLATELET VOLUME 11.4 fL (7.9-10.8); MONOCYTES # (AUTO) 0.6 10^3/uL (0.0-1.0); MONOCYTES % (AUTO) 7.7 %; NEUTROPHILS # (AUTO) 5.1 10^3/uL (1.5-6.6); NEUTROPHILS % (AUTO) 69.9 %; PLT - PLATELET COUNT 234 10^3/uL (130-450); RED BLOOD COUNT 4.47 10^6/uL (4.20-5.40); RED CELL DISTRIBUTION WIDTH 12.3 % (12.0-15.0); WHITE BLOOD COUNT 7.3 x10^3/uL (4.8-10.8)
[2021-01-26] MEDS ORDERED: DEXAMETHASONE 10 MG/ML VIAL IVP STA (09:56)
[2021-01-26] MEDS ORDERED: ALBUTEROL NEB 2.5 MG/3 ML INH STA (09:56)
[2021-01-26] MEDS ORDERED: diphenhydrAMINE INJ 50 MG/ML VIAL IVP STA (09:56)
[2021-01-26 10:04] LABS: CALCIUM 9.5 mg/dL (8.5-10.3); CREATININE 0.6 mg/dL (0.4-1.0)
[2021-01-26] MEDS ORDERED: IOVERSOL 320 100 ML VIAL IVP ONE ×2 (10:11→14:30)
--- NOTE | 2021-01-26 11:56 | CT Report ---
PROCEDURE: ANGIO CHEST W INDICATIONS: dyspnea, PE protocol CONTRAST: IV CONTRAST: Optiray 320 ml: 80 PO CONTRAST: *NO PO CONTRAST TECHNIQUE: After the administration of intravenous contrast, 2 mm axial images were acquired from the pulmonary apices to the posterior costophrenic angles during the arterial phase. In addition, 1 mm lung kernel and 5 mm soft tissue kernel reconstructions were performed. 3-dimensional coronal oblique maximum int ensity projection (MIP) reformats, 8 mm axial MIP, and 5 mm coronal and sagittal MPR reformats were t hen performed through the thorax. For radiation dose reduction, the following was used: automated exp osure control, adjustment of mA and/or kV according to patient size. Patient received premedication for prior iodine allergy. COMPARISON: None. FINDINGS: Image quality: Good. Pulmonary arteries: Pulmonary arteries are normal in size, and demonstrate no intraluminal filling d efects to suggest pulmonary embolism. No aortic dissection. Lungs and pleura: Mild dependent groundglass opacity. Right lower lobe subpleural pulmonary nodule me asuring 0.4 cm, (). No pleural effusions or pneumothorax. Central and peripheral airways are pat ent. Mediastinum: Heart size is normal, without pericardial effusion. No mediastinal or hilar adenopathy . Thoracic aorta is normal in caliber and enhancement. Esophagus is normal in caliber, without hiat al hernia. Bones and chest wall: No suspicious bony lesions. Ribs and thoracic spine appear intact throughout. No axillary or supraclavicular adenopathy. Left thyroid nodule measuring approximately 1 cm. Punct ate calcification. Abdomen: Visualized upper abdominal solid organs appear normal in the early arterial phase of enhanc ement. IMPRESSION: 1. No pulmonary embolism. 2. Mild dependent groundglass opacity. Suspect atelectasis over infectious/inflammatory etiology. 3. Left thyroid nodule measuring 1 cm. Punctate calcification. -Recommend further evaluation with thyroid ultrasound. CLINICAL RECOMMENDATION STATEMENTS: In patients <35 years with an ITN detected on CT, MRI, or extrathyroidal ultrasound, the Committee re commends further evaluation with dedicated thyroid ultrasound if the nodule is "e1 cm and has no susp icious imaging features, and if the patient has normal life expectancy. In patients "e35 years with an ITN detected on CT, MRI, or extrathyroidal ultrasound, the Committee r ecommends further evaluation with dedicated thyroid ultrasound if the nodule is "e1.5 cm and has no s uspicious imaging features, and if the patient has normal life expectancy. (ACR, 2014) Reviewed by: Bryn Sanchez MD on 01/26/2021 11:55 AM PDT Approved by: Bryn Sanchez MD on 01/26/2021 11:55 AM PDT Station ID: [id number]
[2021-01-26 12:09] VITALS: BP 136/64
== END 2021-01-26 12:15 | disposition home or self-care (01) ==
LOC: ED 09:05
DX: U07.1 COVID-19 (principal); R06.02 Shortness of breath; R50.9 Fever, unspecified; R07.9 Chest pain, unspecified; E04.1 Nontoxic single thyroid nodule; F17.200 Nicotine dependence, unspecified, uncomplicated
CPT/HCPCS: 36415; 71046; 71275; 80048; 85025; 93005; 94640; 96374; 99284; J1200; Q9967

== ENCOUNTER 2021-04-02 08:43 | Emergency (ER) | payer MEDICAID ==
--- NOTE | 2021-04-02 08:46 | ED Physician Documentation ---
PD HPI DYSPNEA - Stated complaint Stated Complaint: WHEEZING, CHEST PX - History obtained from History obtained from: Patient - History of Present Illness Timing - onset: How many weeks ago (1) Timing - onset during: Rest, Light activity Timing - duration: Weeks (1) Timing - details: Gradual onset Inciting event(s): URI (has had some chills, congestion, cough for a week. Was slightly improving and now worse cough/congestion/some colored sputum production now. Aching in chest from cough.). No: Out of meds Improved by: Inhaler/neb (her albuterol does help briefly.) Associated symptoms: Fever, Cough, Wheezing, Chest pain / discomfort (tightness). No: Hemoptysis, Bilateral edema Recently seen: Not recently seen Review of Systems Constitutional: reports: Chills, Myalgias. denies: Fever Nose: reports: Congestion Throat: denies: Sore throat Cardiac: reports: Chest pain / pressure (tightness with breathing) Respiratory: reports: Dyspnea, Cough, Wheezing GI: denies: Abdominal Pain, Nausea, Vomiting, Diarrhea : denies: Dysuria Skin: denies: Rash Neurologic: reports: Generalized weakness. 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 - Present Medications Home Medications: Ambulatory Orders Medication Instructions Recorded Confirmed Albuterol Sulf [Ventolin Hfa 1 - 2 puffs INH Q4HR PRN #1 inhaler 01/26/21 Inhaler] Benzonatate [Tessalon] 100 mg PO TID PRN #20 cap 04/02/21 Doxycycline Hyclate 100 mg PO BID 7 Days #14 cap 04/02/21 dexAMETHasone [Decadron] 4 mg PO DAILY #7 tablet 04/02/21 - Allergies Allergies/Adverse Reactions: Allergies Allergy/AdvReac Type Severity Reaction Status Date / Time Iodinated Contrast Media Allergy Edema Verified 04/02/21 08:45 - Living Situation Living Situation: reports: Other (works in [employer]) Living Arrangement: reports: At home - Social History Does the pt smoke?: Yes Smoking Status: Current every day smoker Does the pt drink ETOH?: Yes Does the pt have substance abuse?: No - Immunizations Immunizations are current?: Yes - POLST Patient has POLST: No POLST Status: Full Code PD ED PE NORMAL - Vitals Vital signs reviewed: Yes - General General: No acute distress. No: Alert and oriented X 3, Well developed/nourished - HEENT HEENT: Ears normal, Moist mucous membranes, Pharynx benign - Neck Neck: Supple, no meningeal sign, No adenopathy - Cardiac Cardiac: RRR, No murmur - Respiratory Respiratory: Clear bilaterally (with some central exp wheezing.) - Abdomen Abdomen: Soft, Non tender - Derm Derm: Normal color, Warm and dry, No rash - Extremities Extremities: No edema, No calf tenderness / cord - Neuro Neuro: Alert and oriented X 3, No motor deficit, Normal speech Results - Vitals Vitals: Oxygen O2 Source Room air - Labs Labs: Laboratory Tests 04/02/21 09:16 Coronavirus (PCR) NEGATIVE PD MEDICAL DECISION MAKING - ED course Complexity details: considered differential (seems URI symptoms, though was improving and now worse cough/congestion. Consider secondary bacterial. Can test for COVID though she has had negative rapid Ag tests. Likely other viral illness. Lungs clear and does not seem pneumonic. Some wheezing and she uses Albuterol already. ), d/w patient Departure - Departure Disposition: 01 Home, Self Care Clinical Impression: Upper respiratory infection Qualifiers: URI type: unspecified URI Qualified Code(s): J06.9 - Acute upper respiratory infection, unspecified Condition: Stable Record reviewed to determine appropriate education?: Yes Instructions: ED Upper Resp Infec Abx Tx Follow-Up: Javan Jones MD [Primary Care Provider] - Prescriptions: dexAMETHasone [Decadron] 4 mg PO DAILY #7 tablet Doxycycline Hyclate 100 mg PO BID 7 Days #14 cap Benzonatate [Tessalon] 100 mg PO TID PRN #20 cap PRN Reason: Cough Comments: Your lungs sound fairly clear except for some mild expiratory wheezing. Your oxygenation level is good. Given your recent illnesses, it would make sense to treat this with the possibility of a bacterial infection as well as some activation of the airways with inflammation and spasm. I would have you continue your albuterol inhaler 2 to 3 puffs 4 times a day regularly for the next several days to week. Also add Decadron steroid for inflammation of the airways daily for 5 more days. Use Tessalon if needed for cough. Stay well-hydrated and use Tylenol or ibuprofen if needed for fevers or pains. It would sound most likely that you have a viral illness that you have been around (parainfluenza). However that does not preclude the development of some secondary infection. Given possible bacterial component, I would add doxycycline antibiotic as directed. I transmitted your prescriptions to [facility]. Off work today and possibly tomorrow related to illness. You have a Covid test pending. You need to self quarantine until the result is done and negative. Do not leave your house. Do not get near anybody. The results should be done in 48 to 72 hours, but sometimes longer. We will call with a positive result, the fastest way to get a negative result for confirmation though is to go to the hospital website at [email or web address], click on the my [facility] tab and sign up for the patient portal. If any friends or family get sick and would like to have a Covid test done, but do not have signs or symptoms that would necessitate being hospitalized, we encourage testing throughone of the local pharmacies or the Health Department. Call them to schedule an appointment. Forms: Activity restrictions Discharge Date/Time: 04/02/21 09:37
[2021-04-02 08:47] VITALS: BP 133/79
[2021-04-02] MEDS ORDERED: DEXAMETHASONE 10 MG/ML VIAL PO STA (09:04)
[2021-04-02] MEDS ORDERED: CHERRY SYRUP 10 ML UDC PO ONE (09:04)
[2021-04-02] MEDS ORDERED: DOXYCYCLINE 100 MG TABLET PO STA (09:04)
[2021-04-02] MEDS ORDERED: BENZONATATE 100 MG CAPSULE PO STA (09:04)
== END 2021-04-02 09:37 | disposition home or self-care (01) ==
LOC: ED 08:43
DX: J06.9 Acute upper respiratory infection, unspecified (principal); Z20.822 Contact with and (suspected) exposure to COVID-19; J45.909 Unspecified asthma, uncomplicated; F17.200 Nicotine dependence, unspecified, uncomplicated
CPT/HCPCS: 87635; 99283; 99284; A9270

== ENCOUNTER 2021-05-16 07:24 | Outpatient (CLI) | payer MEDICAID ==
--- NOTE | 2021-05-16 15:14 | CT Report ---
PROCEDURE: CHEST WO INDICATIONS: PULMONARY NODULE TECHNIQUE: Noncontrast 1mm axial images were acquired from the pulmonary apices to the posterior costophrenic an gles. Axial 5 mm soft tissue kernel reconstructions were performed as well as 8 mm axial MIP and cor onal and sagittal 5 mm reformations. For radiation dose reduction, the following was used: automate d exposure control, adjustment of mA and/or kV according to patient size. COMPARISON: CT anterior chest 01/26/2021. Thyroid ultrasound 09/23/2020. FINDINGS: Image quality: Excellent. Lungs and pleura: There are a few scattered pulmonary nodules bilaterally. These include: -Right lower lobe pleural-based 0.4 cm nodule (4/234), stable in size. -Right upper lobe 0.3 cm nodule (4/110), stable in size given differences in technique -Right upper lobe 0.4 cm nodule (4/87), stable in size given differences in technique. -Left upper lobe subpleural 0.3 cm nodule (4/133), stable in size given differences in technique. -Left lower lobe pleural-based 0.3 cm nodule (4/191), stable in size. No new suspicious nodules or mass lesions. No pleural effusions or pneumothorax. The trachea and cent ral airways appear patent. Mediastinum: Heart size is normal. No pericardial effusion. There is soft tissue within anterior m ediastinum redemonstrated consistent with residual thymus. No mediastinal adenopathy by size criteria . Thoracic aorta and central pulmonary arteries are normal in size. Esophagus is normal in caliber. No hiatal hernia. Bones and chest wall: No suspicious bony lesions. No vertebral body compression fractures. No axil alec or supraclavicular adenopathy by size criteria. The thyroid is heterogeneous in appearance with bilateral nodules redemonstrated. Abdomen: Visualized upper abdominal solid organs and bowel loops appear normal in the absence of con trast. IMPRESSION: 1. Stable bilateral pulmonary nodules measuring up to 0.4 cm. If patient is at high risk for malignan cy, a follow-up CT may be performed in 12 months to demonstrate stability. 2. Heterogeneous thyroid with multiple nodules redemonstrated bilaterally. Recommend correlation with findings and recommendations on prior thyroid ultrasound. Reviewed by: Alphonso Gomez MD on 05/16/2021 3:13 PM PST Approved by: Alphonso Gomez MD on 05/16/2021 3:13 PM [facility] Station ID: [id number]
== END 2021-05-16 07:25 | disposition home or self-care (01) ==
LOC: DI 07:24
PROVIDERS: ATTEND Internal Medicine Critical Care Medicine
DX: R91.8 Other nonspecific abnormal finding of lung field (principal); E04.2 Nontoxic multinodular goiter

== ENCOUNTER 2021-06-12 13:15 | Outpatient (CLI) | payer MEDICAID | END 2021-06-12 13:16 | disposition home or self-care (01) | LOC: RT 13:15 | PROVIDERS: ATTEND Internal Medicine Critical Care Medicine | DX: J45.20 Mild intermittent asthma, uncomplicated (principal) | CPT/HCPCS: 94010; 94727; 94729 ==

== ENCOUNTER 2021-09-26 16:03 | Outpatient (CLI) | payer MEDICAID ==
[2021-09-26 16:38] VITALS: BP 122/72
--- NOTE | 2021-09-26 16:38 | SLEEP CARE CONSULTATION ---
Information from patient questionnaire entered by Luly England MA. I have reviewed and concur with the information entered by Luly England MA. This document represents the service I personally performed and the decisions made by , Tati Corrales ARNP. History of Present Illness Service Date and Time: 09/26/2021 1603 Reason for Visit: New patient (ONSET 04/14/2012) Chief Complaint: reports: Unrefreshed sleep, Snoring, Excessive daytime sleepiness, Fatigue, Frequent awakenings at night Date of Onset: 11 year Usual bedtime: 930 PM Time it takes to fall asleep: 15 MIN - 2 HOURS Snores at night: Yes (occasionally per her ) Observed to quit breathing while asleep: No Sleeps alone due to snoring: No Number of times waking at night: FEW; 4-5 times a night Reasons for waking at night: reports: Gasping for air, Pain, Bathroom, Other (unknown reasons; "burst of anxiety" occasionally). denies: Snoring Toss, Turn, or Twitch while sleeping: Yes Recalls having dreams: Yes Usually gets out of bed at: 4543-5901; weekends about 0800 Feels refreshed in the morning: No Morning headache: Yes (every morning, migraine; takes 800 mg ibuprofen and reduces headache) Sleepy or fatigued during the day: Yes Ever fallen asleep while driving: No Takes day naps: No Dreams during day naps: No Prior sleep studies: No Additional HPI information: I had the pleasure of seeing SAWYER MAE today regarding the possibility of her having a sleep disorder. Her current complaints are unrefreshed sleep, snoring, excessive daytime sleepiness, fatigue and frequent night awakenings. She has a smart watch and it has noted that her oxygen levels will go down at night. She has had trouble with shortness of breath, chest pain and palpitations. This is all the time, not necessarily when sleeping, but she has had times when she woke up short of breath. She states she will sometimes be awakened by "bursts of anxiety" and she does not know why. Her has told her that she does snore but not all the time and he has not observed pauses in breathing. She states she wakes up tired and is tired throughout the day. She is able to stay alert and focused when she is doing something. - Parasomnia Symptoms Ever been unable to move upon waking from sleep: No Walks in sleep: No Talks in sleep: Yes (sometimes) Ever acted out dreams in sleep: No Ever felt weak in the knees when startled or emotional: No Bothered by creepy, crawly, restless sensations in legs: Yes (since Covid vaccine she has had restless feeling in legs; varies) Problems with memory or concentration: Yes (minor for both) Subjective Initial [place] Sleepiness Scale score: 6 (09/26/2021) Past Medical History Past Medical History: reports: Arthritis, Fibromyalgia, Anxiety, Asthma (when sick), Other (IBS, PCOS, hyperthyroidism, 5 lung nodules, brain lesion, Grave's disease (in process of dx)) Social History 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 Patient is and lives in [place]. Have you smoked in the past 12 months: Yes Cigarettes per day (20/pack): 10 Years of smokin Quit date: 05/2021 Smoking Pack Years: 8.0 Alcohol use: Yes Alcohol amount and frequency: 4 X WEEKLY Caffeine use: Yes Caffeine amount and frequency: 1 X DAILY Family History Family history of sleep disordered breathing: Yes Family Hx Sleep Apnea: Mother: Snoring, Sleep apnea - Untreated, Father: Snoring Allergies and Home Medications Drug allergies reviewed: Yes (Iodinated contrast media) Home medication list reviewed: Yes (no daily medications) Allergy and home medication list: Allergies Iodinated Contrast Media Allergy (Verified 07/19/21 15:03) Edema Review of Systems Weight gain over past 5 years: 50 lb, mostly in the last 2 years Cardiovascular: reports: palpitations, chest pain, irregular heart rate or pulse Respiratory: reports: shortness of breath, wheeze, sputum production Gastrointestinal: reports: heartburn, nausea, diarrhea, abdominal pain Neurological: reports: headaches Psychiatric: reports: anxiety Ear/Nose/Throat: reports: wisdom teeth removed. denies: tonsillectomy Endocrine: reports: thyroid disease, history of goiter, sluggishness, too hot or cold, excessive thirst, increased appetite, increased urination Musculoskeletal: reports: joint pain, neck pain, back pain, muscle pain or cramping Physical Exam Vital signs obtained and entered by: BOY Blood Pressure: 122/72 Cuff size: wrist (right) Heart Rate: 76 O2 Saturation: 98 Height: 5 ft 11 in Weight: 224 lb Body Mass Index: 31.2 BMI Classification: Obese Neck circumference: 16 (inches) Mouth and throat: narrow oropharynx Soft palate: long Hard palate: normal Uvula: normal Uvula visualization: 25% Mallampati Class III Tongue: enlarged in size with teeth gallegos on lateral edges Tonsils: small Neck: normal w/o lymphadenopathy or thyromegaly Heart: regular rate and rhythm Lungs: clear bilaterally Impression and Plan 1. Suspected Obstructive Sleep Apnea-Hypopnea Syndrome, as suggested by a history of irregular snoring, gasping or choking in sleep, morning headache, frequent awakening during the night, unrefreshed sleep, cognitive impairment, and excessive daytime sleepiness. Narrow oropharynx and obesity are common predisposing factors for obstructive sleep apnea-hypopnea syndrome. I recommend proceeding to polysomnography to confirm the diagnosis and to assess severity. If the patient has significant sleep disordered breathing, a manual CPAP titration study will also be performed to find the optimal treatment pressure. I informed the patient of what the sleep studies involve and after some discussion, obtained agreement to proceed. The pathophysiology of obstructive sleep apnea-hypopnea syndrome was discussed with the patient and health risks of cardiovascular and cerebrovascular disease if not treated. 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 Patient agreed to plan. * Schedule polysomnography * Avoid long distance driving or driving when feeling sleepy. * Avoid alcohol, sedative and muscle relaxant around bedtime. * Attempt to lose weight. * Review instructions provided by trained office staff on how to prepare for the sleep study. * Return for follow-up after sleep study completed. Counseling Topics: Weight loss health impact Visit Type: In Office Time Spent with Patient (minutes): 35 Provider Statement: I spent 100% of the Face to Face Visit with the patient with greater than 50% spent counseling the patient and coordination of care.
== END 2021-09-26 16:04 | disposition home or self-care (01) ==
LOC: SC 16:03
PROVIDERS: ATTEND Nurse Practitioner Family
DX: G47.10 Hypersomnia, unspecified (principal); R53.83 Other fatigue; G47.8 Other sleep disorders; R06.83 Snoring; Z87.891 Personal history of nicotine dependence; E66.9 Obesity, unspecified; Z68.31 Body mass index [BMI] 31.0-31.9, adult
CPT/HCPCS: 99203; 99212

== ENCOUNTER 2021-10-08 19:30 | Outpatient (CLI) | payer MEDICAID | END 2021-10-08 19:31 | disposition home or self-care (01) | LOC: SC 19:30 | PROVIDERS: ATTEND Nurse Practitioner Family | DX: G47.10 Hypersomnia, unspecified (principal); R53.83 Other fatigue; G47.8 Other sleep disorders; R06.83 Snoring | CPT/HCPCS: 95810 ==

== ENCOUNTER 2021-12-14 07:47 | Emergency (ER) | payer MEDICAID ==
[2021-12-14] MEDS ORDERED: KETOROLAC 15 MG/ML VIAL IVP STA (08:15)
--- NOTE | 2021-12-14 08:24 | ED Physician Documentation ---
History of Present Illness - Stated complaint Stated Complaint: OVARY CRAMPING/PX - Chief complaint Chief Complaint: Abd Pain - History obtained from History obtained from: Patient - History of Present Illness Timing: Chronic Pain level max: 7 Pain level now: 7 - Additonal information Additional information: Patient is a 31-year-old female who presents to the emergency department with lower abdominal pain/cramping. She states is been ongoing for the past several years. She states that she had a partial hysterectomy in [place]. She states that they left her ovaries and cervix intact but removed the uterus. She states that the cramping has gradually worsened over the past few years. Decided to come in for further evaluation today. No vaginal bleeding or discharge. No STD exposure. No urinary symptoms. No diarrhea, constipation. No fevers. No chills. She states usually the pain is resolved with Motrin. Review of Systems Ten Systems: 10 systems reviewed and negative Constitutional: denies: Fever, Chills Nose: denies: Rhinorrhea / runny nose, Congestion Throat: denies: Sore throat Cardiac: denies: Chest pain / pressure Respiratory: denies: Dyspnea, Cough GI: denies: Abdominal Swelling, Nausea, Vomiting, Constipation, Diarrhea, Hematemesis, Bloody / black stool : denies: Dysuria, Frequency, Hesitancy Skin: denies: Rash Musculoskeletal: denies: Neck pain, Back pain Neurologic: denies: Focal weakness, Numbness, Headache PD PAST MEDICAL HISTORY - Past Medical History Past Medical History: Yes Respiratory: Asthma, Pneumonia Neuro: Headaches Endocrine/Autoimmune: HyPOthyroidism 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 Psych: Depression, Anxiety Musculoskeletal: Osteoarthritis, Fibromyalgia - Past Surgical History Past Surgical History: No /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: Hysterectomy - Present Medications Home Medications: Ambulatory Orders Medication Instructions Recorded Confirmed Albuterol Sulf [Ventolin Hfa 1 - 2 puffs INH Q4HR PRN #1 inhaler 01/26/21 Inhaler] Benzonatate [Tessalon] 100 mg PO TID PRN #20 cap 04/02/21 Doxycycline Hyclate 100 mg PO BID 7 Days #14 cap 04/02/21 dexAMETHasone [Decadron] 4 mg PO DAILY #7 tablet 04/02/21 - Allergies Allergies/Adverse Reactions: Allergies Allergy/AdvReac Type Severity Reaction Status Date / Time Iodinated Contrast Media Allergy Edema Verified 07/19/21 15:03 - Social History Does the pt smoke?: Yes Smoking Status: Current every day smoker Does the pt drink ETOH?: Yes Does the pt have substance abuse?: No - Immunizations Immunizations are current?: Yes - POLST Patient has POLST: No POLST Status: Full Code PD ED PE NORMAL - Vitals Vital signs reviewed: Yes - General General: Alert and oriented X 3, No acute distress - HEENT HEENT: PERRL, Moist mucous membranes - Neck Neck: Supple, no meningeal sign - Cardiac Cardiac: RRR, Strong equal pulses - Respiratory Respiratory: No respiratory distress, Clear bilaterally - Abdomen Abdomen: Soft, Non distended, Other (Tenderness to palpation along the lower abdomen. No peritoneal signs) - Back Back: No CVA TTP, No spinal TTP - Derm Derm: Warm and dry - Extremities Extremities: No edema - Neuro Neuro: Alert and oriented X 3 - Psych Psych: Normal mood, Normal affect Results - Vitals Vitals: Vital Signs - 24 hr 12/14/21 12/14/21 07:56 10:05 Temperature 36.9 C 36.6 C Heart Rate 88 77 Respiratory 16 16 Rate Blood Pressure 130/81 H 98/66 O2 Saturation 100 100 Oxygen O2 Source Room air - Labs Labs: Laboratory Tests 12/14/21 12/14/21 12/14/21 07:54 08:23 08:23 WBC 5.6 RBC 4.14 L Hgb 12.8 Hct 36.9 L MCV 89.1 MCH 30.9 MCHC 34.7 RDW 12.8 Plt Count 193 MPV 12.4 H Neut # (Auto) 3.8 Lymph # (Auto) 1.1 L Petroleum # (Auto) 0.5 Eos # (Auto) 0.1 Baso # (Auto) 0.0 Absolute Nucleated RBC 0.00 Nucleated RBC % 0.0 Sodium 137 Potassium 3.8 Chloride 105 Carbon Dioxide 23 Anion Gap 9.0 BUN 12 Creatinine 0.5 Estimated GFR (MDRD) 143 Glucose 105 H Calcium 9.0 Total Bilirubin 1.0 AST 17 ALT 19 Alkaline Phosphatase 39 L Total Protein 7.0 Albumin 4.3 Globulin 2.7 Albumin/Globulin Ratio 1.6 Lipase 32 Urine Color YELLOW Urine Clarity CLEAR Urine pH 6.0 Ur Specific [place] 1.025 Urine Protein NEGATIVE Urine Glucose (UA) NEGATIVE Urine Ketones NEGATIVE Urine Occult Blood NEGATIVE Urine Nitrite NEGATIVE Urine Bilirubin NEGATIVE Urine Urobilinogen 0.2 (NORMAL) Ur Leukocyte Esterase NEGATIVE Ur Microscopic Review NOT INDICATED Urine Culture Comments NOT INDICATED - Rads (name of study) Pelvic ultrasound Radiology: Final report received, EMP read contemporaneously, See rad report PD MEDICAL DECISION MAKING - ED course Complexity details: reviewed results, re-evaluated patient, considered differential, d/w patient ED course: Patient with bilateral pelvic pain and cramping ongoing for the past several years. Unclear etiology. No significant findings on ultrasound other than a right-sided small simple cyst. She states that she was supposed to have several more surgeries with her production illustrator in [place]. I recommend that she follow- up with her for further care. Patient declines any pain medication for home. Patient counseled This document was made in part using voice recognition software. While efforts are made to proofread this document, sound alike and grammatical errors may occur. Departure - Departure Disposition: Home, Self Care Clinical Impression: Pelvic pain in female Condition: Good Instructions: ED Pelvic Pain [facility] Follow-Up: Javan Jones MD [Primary Care Provider] - Within 1 week Ofelia Linares MD [Physician No Access] - Comments: The cause of your symptoms is unclear today. Please follow-up with your doctor for further care. Your laboratory testing does not show any acute abnormalities. Your ultrasound also does not show any acute abnormalities. Please return if you worsen. FINDINGS: No pathologic free abdominal or pelvic fluid. Uterus: The uterus is surgically absent. Ovaries: The right ovary measures 3.9 x 2.0 x 4.0 cm with a volume of 23.5 mL. There is a simple 2.1 x 1.7 x 2.0 cm right ovarian cyst. The left ovary measures 2.6 x 1.5 x 2.0 cm with a volume of 4.2 mL. There are fewer than 12 follicles in the bilateral ovaries. Normal appearing arterial and venous waveforms are confirmed to each ovary.] Other: No free pelvic fluid. IMPRESSION: 1. Simple right ovarian cyst which is within physiologic limits in a premenopausal female. 2. Otherwise unremarkable pelvic ultrasound. Discharge Date/Time: 12/14/21 10:08
[2021-12-14 08:32] LABS: BASOPHILS % (AUTO) 0.5 %; EOSINOPHILS # (AUTO) 0.1 10^3/uL (0.0-0.7); EOSINOPHILS % (AUTO) 1.8 %; HCT - HEMATOCRIT 36.9 % (37.0-47.0); HGB - HEMOGLOBIN 12.8 g/dL (12.0-16.0); LYMPHOCYTES # (AUTO) 1.1 10^3/uL (1.5-3.5); LYMPHOCYTES % (AUTO) 20.2 %; MEAN CORPUSCULAR HEMOGLOBIN 30.9 pg (27.0-31.0); MEAN CORPUSCULAR HGB CONC 34.7 g/dL (32.0-36.0); MEAN CORPUSCULAR VOLUME 89.1 fL (81.0-99.0); MEAN PLATELET VOLUME 12.4 fL (7.9-10.8); MONOCYTES # (AUTO) 0.5 10^3/uL (0.0-1.0); MONOCYTES % (AUTO) 9.1 %; NEUTROPHILS # (AUTO) 3.8 10^3/uL (1.5-6.6); PLT - PLATELET COUNT 193 10^3/uL (130-450); RED BLOOD COUNT 4.14 10^6/uL (4.20-5.40); RED CELL DISTRIBUTION WIDTH 12.8 % (12.0-15.0); WHITE BLOOD COUNT 5.6 x10^3/uL (4.8-10.8)
[2021-12-14 08:33] LABS: BILIRUBIN,URINE NEGATIVE (NEGATIVE); GLUCOSE, URINE (UA) NEGATIVE (NEGATIVE); KETONES,URINE (UA) NEGATIVE (NEGATIVE); LEUKOCYTE ESTERASE, URINE NEGATIVE (NEGATIVE); NITRITE,URINE NEGATIVE (NEGATIVE); OCCULT BLOOD,URINE NEGATIVE (NEGATIVE); PROTEIN,URINE NEGATIVE (NEGATIVE); UROBILINOGEN,URINE 0.2 (NORMAL) E.U./dL (NORMAL)
[2021-12-14 08:34] LABS: CLARITY,URINE CLEAR (CLEAR)
[2021-12-14 08:44] LABS: ALBUMIN 4.3 g/dL (3.2-5.5); ALBUMIN/GLOBULIN RATIO 1.6 (1.0-2.2); CREATININE 0.5 mg/dL (0.4-1.0); POTASSIUM 3.8 mmol/L (3.5-5.0)
--- NOTE | 2021-12-14 09:43 | Ultrasound Report ---
PROCEDURE: Pelvic w/Transvag+Doppler Comp INDICATIONS: pelvic pain, B TECHNIQUE: Real-time scanning was performed of the pelvic organs, with image documentation. Additional endovagi nal scanning was necessary due to incomplete visualization of the adnexal and endometrial structures by transabdominal scanning. Doppler interrogation was performed of the ovaries bilaterally. COMPARISON: None. FINDINGS: No pathologic free abdominal or pelvic fluid. Uterus: The uterus is surgically absent. Ovaries: The right ovary measures 3.9 x 2.0 x 4.0 cm with a volume of 23.5 mL. There is a simple 2.1 x 1.7 x 2.0 cm right ovarian cyst. The left ovary measures 2.6 x 1.5 x 2.0 cm with a volume of 4.2 m L. There are fewer than 12 follicles in the bilateral ovaries. Normal appearing arterial and venous w aveforms are confirmed to each ovary.] Other: No free pelvic fluid. IMPRESSION: 1. Simple right ovarian cyst which is within physiologic limits in a premenopausal female. 2. Otherwise unremarkable pelvic ultrasound. Reviewed by: Zohra Fry MD on 12/14/2021 9:41 AM PDT Approved by: Zohra Fry MD on 12/14/2021 9:41 AM PDT Station ID: [id number]
[2021-12-14 10:07] VITALS: BP 98/66
== END 2021-12-14 10:08 | disposition home or self-care (01) ==
LOC: ED 07:47
DX: R10.2 Pelvic and perineal pain (principal); F17.200 Nicotine dependence, unspecified, uncomplicated
CPT/HCPCS: 36415; 80053; 81001; 81003; 83690; 85025; 87086; 93975; 96374; 99282

== ENCOUNTER 2022-02-07 07:36 | Emergency (ER) | payer MEDICAID ==
[2022-02-07 07:44] VITALS: BP 130/69
--- NOTE | 2022-02-07 07:57 | ED Physician Documentation ---
PD HPI DYSPNEA - Stated complaint Stated Complaint: SOA/COUGH - Chief complaint Chief Complaint: Resp - History obtained from History obtained from: Patient - Additional information Additional information: Patient is a 31-year-old female presenting for evaluation of productive cough and congestion Which is been present for 2 days.Her cough is productive of green sputum with no blood.She denies known fevers. She reports feeling short of breath with her cough.She has recently picked back up with smoking half a pack a day but has not in the last several days.She reports a history of lung nodules and recurrent pneumonia.She denies chest pain, abdominal pain, vomiting, leg swelling or edema. 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 - Present Medications Home Medications: Ambulatory Orders Medication Instructions Recorded Confirmed Albuterol Sulf [Ventolin Hfa 1 - 2 puffs INH Q4HR PRN #1 inhaler 01/26/21 Inhaler] Benzonatate [Tessalon] 100 mg PO TID PRN #20 cap 04/02/21 Doxycycline Hyclate 100 mg PO BID 7 Days #14 cap 04/02/21 dexAMETHasone [Decadron] 4 mg PO DAILY #7 tablet 04/02/21 Albuterol Sulf [Ventolin Hfa 1 - 2 puffs INH Q4HR PRN #1 each 02/07/22 Inhaler] Benzonatate [Tessalon] 100 mg PO TID PRN #15 cap 02/07/22 predniSONE [Deltasone] 40 mg PO DAILY 5 Days #10 tablet 02/07/22 - Allergies Allergies/Adverse Reactions: Allergies Allergy/AdvReac Type Severity Reaction Status Date / Time Iodinated Contrast Media Allergy Edema Verified 02/07/22 07:44 - Social History Does the pt smoke?: Yes Smoking Status: Current every day smoker Does the pt drink ETOH?: Yes Does the pt have substance abuse?: No - Immunizations Immunizations are current?: Yes - POLST Patient has POLST: No POLST Status: Full Code PD ED PE NORMAL - General General: Alert and oriented X 3, No acute distress, Well developed/nourished - HEENT HEENT: Atraumatic, Moist mucous membranes, Pharynx benign - Cardiac Cardiac: RRR, Strong equal pulses - Respiratory Respiratory: No respiratory distress, Clear bilaterally - Abdomen Abdomen: Soft, Non tender - Derm Derm: Warm and dry - Extremities Extremities: No edema, No calf tenderness / cord - Neuro Neuro: Normal speech Results - Vitals Vitals: Vital Signs - 24 hr 02/07/22 07:42 Temperature 36.7 C Heart Rate 102 H Respiratory 16 Rate Blood Pressure 130/69 O2 Saturation 100 Oxygen O2 Source Room air - Labs Labs: Laboratory Tests 02/07/22 08:00 SARS-CoV-2 (PCR) NOT DETECTED PD MEDICAL DECISION MAKING - ED course Complexity details: reviewed results, re-evaluated patient ED course: Pt with cough/SOA. Mild wheeze noted on exam. Does not appear labored. Chest xray clear. Suspect viral illness. Doubt PE as pt has clear URI symptoms . DIscussed treatment with prednisone/inhaler/cough medications which pt is agreeable to. Pt advised on concerning symptoms to return for. Departure - Departure Disposition: 01 Home, Self Care Clinical Impression: Bronchitis Condition: Stable Instructions: ED Bronchitis Asthmatic Prescriptions: Albuterol Sulf [Ventolin Hfa Inhaler] 1 - 2 puffs INH Q4HR PRN #1 each PRN Reason: Shortness Of Air/Wheezing predniSONE [Deltasone] 40 mg PO DAILY 5 Days #10 tablet Benzonatate [Tessalon] 100 mg PO TID PRN #15 cap PRN Reason: Cough Comments: Your chest x-ray is clear and does not show signs of pneumonia. COVID test is pending. Your symptoms are suggestive of bronchitis Which is inflammation of the airway from an infection. Most often the infection is viral and antibiotics will not help. I have sent prescriptions for prednisone as well as an albuterol inhaler and cough medication to [facility] in [place].If you have any worsening symptoms please consider return to the ER. You have a Covid test pending. You need to self quarantine until the result is done and negative. Do not leave your house. Do not get near anybody. The results should be done in 48 to 72 hours. We will call with a positive result, the fastest way to get a negative result for confirmation though is to go to the [facility] website at [email or web address], click on the my [employer] Qu[employer] tab and sign up for the patient portal. If any friends or family get sick and would like to have a Covid test done, but do not have signs or symptoms that would necessitate being hospitalized, there are multiple local options for Covid testing. [facility] keeps an updated list of testing and vaccination options at: [email or web address]. Discharge Date/Time: 02/07/22 09:10
[2022-02-07] MEDS ORDERED: BENZONATATE 100 MG CAPSULE PO STA (08:32)
[2022-02-07] MEDS ORDERED: predniSONE 20 MG TABLET PO STA (08:32)
--- NOTE | 2022-02-07 08:44 | XRAY Report ---
PROCEDURE: Chest 1 View X-Ray INDICATIONS: SOA/cough TECHNIQUE: One view of the chest was acquired. COMPARISON: 10/24/2019 FINDINGS: Surgical changes and devices: None. Lungs and pleura: No pleural effusions or pneumothorax. Lungs are clear. Mediastinum: Mediastinal contours appear normal. Heart size is normal. Bones and chest wall: No suspicious bony lesions. Overlying soft tissues appear unremarkable. IMPRESSION: No acute cardiopulmonary process demonstrated radiographically. Reviewed by: Horacio Wellington MD on 02/07/2022 8:43 AM PDT Approved by: Horacio Wellington MD on 02/07/2022 8:43 AM PDT Station ID: [id number]
== END 2022-02-07 09:10 | disposition home or self-care (01) ==
LOC: ED 07:36
DX: J40 Bronchitis, not specified as acute or chronic (principal); F17.200 Nicotine dependence, unspecified, uncomplicated; Z20.822 Contact with and (suspected) exposure to COVID-19
CPT/HCPCS: 71045; 87635; 99284; A9270; J7512

== ENCOUNTER 2022-07-23 07:24 | Outpatient (CLI) | payer OTHER, MEDICAID ==
--- NOTE | 2022-07-23 09:21 | CT Report ---
PROCEDURE: CHEST WO INDICATIONS: PULMONARY NODULE TECHNIQUE: Noncontrast 1mm axial images were acquired from the pulmonary apices to the posterior costophrenic an gles. Axial 5 mm soft tissue kernel reconstructions were performed as well as 8 mm axial MIP and cor onal and sagittal 5 mm reformations. For radiation dose reduction, the following was used: automate d exposure control, adjustment of mA and/or kV according to patient size. COMPARISON: CT 10/23/2021 FINDINGS: Image quality: Excellent. Lungs and pleura: No pleural effusions. No pneumothorax. No suspicious pulmonary nodules which requi re follow up. Multiple solid nodules are present, but have established stability since 05/2021, and a re therefore statistically benign. Mediastinum: Heart size is normal. No pericardial effusions. No mediastinal adenopathy by size criter ia. No large vessel abnormality. Chest wall and lower neck: Multiple thyroid nodules, largest measuring 2.4 cm on the right. Thyroidit is hypoattenuating an enlarged. No axillary or supraclavicular adenopathy by size. Bones: No aggressive osseous abnormality. Upper Abdomen: Unremarkable. IMPRESSION: Multiple solid nodules are present, but have established stability since 05/2021, and are therefore s tatistically benign. No suspicious pulmonary nodules. Multinodular thyroid, which is hyperattenuating, suggestive of underlying thyroiditis. Recommend thyr oid ultrasound if not performed in the past. Reviewed by: Joshua Wan on 07/23/2022 9:19 AM PDT Approved by: Joshua Wan on 07/23/2022 9:19 AM PDT Station ID: [id number]
== END 2022-07-23 14:39 | disposition home or self-care (01) ==
LOC: DI 07:24
PROVIDERS: ATTEND Internal Medicine Critical Care Medicine
DX: R91.8 Other nonspecific abnormal finding of lung field (principal); E04.2 Nontoxic multinodular goiter